=== PATIENT | male | born 1960 | race Caucasian/White ===

== ENCOUNTER 2020-05-26 21:45 | Emergency (ER) | payer OTHER ==
[2020-05-26 22:23] LABS: Absolute Lymphocytes (CBC) 3.1 K/uL (0.7-4.9); Basophils % 0.5 % (0-1.3); Hematocrit 37.8 % (39.6-49.0); MPV 8.1 fL (7.6-11.3); RBC Red Blood Cell Count 4.37 M/uL (4.33-5.43)
[2020-05-26 22:27] LABS: Protime INR 0.99
[2020-05-26 22:40] LABS: ALT/SGPT 17 U/L (12-78); AST/SGOT 11 U/L (15-37); Albumin 3.6 g/dL (3.4-5.0); Alkaline Phosphatase 131 U/L (45-117); Amylase 80 U/L (25-115); BUN Blood Urea Nitrogen 18 mg/dL (7-18); Bicarbonate 25 mmol/L (21-32); Bilirubin Direct < 0.1 mg/dL (0-0.2); Bilirubin Total 0.4 mg/dL (0.2-1.0); CKMB Creatine Kinase MB 1.5 ng/mL (0.3-3.6); Creatine Phosphokinase 111 U/L (39-308); Glucose Level 149 mg/dL (74-106); Lipase 93 U/L (73-393); NT PRO-BNP 19 pg/mL (<125); Potassium 3.3 mmol/L (3.5-5.1); Protein, Total 7.3 g/dL (6.4-8.2); Sodium Level 142 mmol/L (136-145); Troponin (Emerg Dept Use Only) < 0.02 ng/mL (0.0-0.045)
--- NOTE | 2020-05-27 00:55 | EDPHYS ---
Physician Documentation [facility] Name: Jose Alfredo Oconnor Age: 60 yrs Sex: Male : 1960 Arrival Date: 05/26/2020 Time: 21:50 Bed 6 Private MD: ED Physician Romeo Black HPI: 05/26 22:16 This 60 yrs old Male presents to ER via EMS with complaints of Breathing snw Difficulty. 22:16 The patient has shortness of breath at rest. Onset: The symptoms/episode began/occurred snw gradually. Duration: The symptoms are continuous, and are unchanged since they started. Associated signs and symptoms: Pertinent positives: weakness. Severity of symptoms: At their worst the symptoms were moderate. The patient has experienced a previous episode. The patient has not recently seen a physician, and does not have an established primary care provider. Historical: - Allergies: 21:57 No Known Allergies; bb - Home Meds: 21:57 vitamins [Active]; bb - PMHx: 21:57 Myocardial infarction; bb - PSHx: 21:57 amputation; bb - Immunization history:: Adult Immunizations up to date. - Social history:: Smoking status: Patient/guardian denies using tobacco, but has a distant history of tobacco abuse. ROS: 21:55 Eyes: Negative for injury, pain, redness, and discharge, ENT: Negative for injury, snw pain, and discharge, Neck: Negative for injury, pain, and swelling, Cardiovascular: Negative for chest pain, palpitations, and edema, Respiratory: Negative for shortness of breath, cough, wheezing, and pleuritic chest pain, Abdomen/GI: Negative for abdominal pain, nausea, vomiting, diarrhea, and constipation, Back: Negative for injury and pain, : Negative for injury, bleeding, discharge, and swelling, MS/Extremity: Negative for injury and deformity, Skin: Negative for injury, rash, and discoloration. 21:55 Constitutional: Positive for body aches, malaise. 21:55 Neuro: Positive for weakness, Pt states he thinks he had a small stroke 1 week ago, felt weak from right amputation and it moved up to right arm. Exam: 21:54 Constitutional: This is a well developed, well nourished patient who is awake, alert, snw and in no acute distress. Head/Face: Normocephalic, atraumatic. Eyes: Pupils equal round and reactive to light, extra-ocular motions intact. Lids and lashes normal. Conjunctiva and sclera are non-icteric and not injected. Cornea within normal limits. Periorbital areas with no swelling, redness, or edema. ENT: Nares patent. No nasal discharge, no septal abnormalities noted. Tympanic membranes are normal and external auditory canals are clear. Oropharynx with no redness, swelling, or masses, exudates, or evidence of obstruction, uvula midline. Mucous membranes moist. Neck: Trachea midline, no thyromegaly or masses palpated, and no cervical lymphadenopathy. Supple, full range of motion without nuchal rigidity, or vertebral point tenderness. No Meningismus. Chest/axilla: Normal chest wall appearance and motion. Nontender with no deformity. No lesions are appreciated. Cardiovascular: Regular rate and rhythm with a normal S1 and S2. No gallops, murmurs, or rubs. Normal PMI, no JVD. No pulse deficits. Abdomen/GI: Soft, non-tender, with normal bowel sounds. No distension or tympany. No guarding or rebound. No evidence of tenderness throughout. Back: No spinal tenderness. No costovertebral tenderness. Full range of motion. Skin: Warm, dry with normal turgor. Pale color with no rashes, no lesions, and no evidence of cellulitis. MS/ Extremity: Pulses equal, no cyanosis. Neurovascular intact. Full, normal range of motion. Neuro: Awake and alert, GCS 15, oriented to person, place, time, and situation. Cranial nerves II-XII grossly intact. Motor strength 5/5 in all extremities. Sensory grossly intact. Cerebellar exam normal. Normal gait. Psych: Awake, alert, with orientation to person, place and time. Behavior, mood, and affect are within normal limits. 21:54 Respiratory: mild respiratory distress is noted, Respirations: pursed lip breathing, shallow respirations, Breath sounds: bronchial sounds, wheezing: that is moderate, is heard diffusely. Vital Signs: 21:51 BP 132 / 70; Pulse 85; Resp 18 S; Temp 97.5(O); Pulse Ox 94% on R/A; Weight 95.25 kg bb (R); Height 6 ft. 1 in. (185.42 cm) (R); Pain 0/10; 22:30 BP 105 / 64; Pulse 63; Resp 18; Pulse Ox 93% on R/A; ea 23:12 BP 144 / 99; Pulse 70; Resp 18; Pulse Ox 98% on R/A; ea 05/27 00:23 BP 135 / 83; Pulse 66; Resp 18; Pulse Ox 93% on R/A; ea 01:03 BP 149 / 96; Pulse 63; Resp 18; Pulse Ox 98% on R/A; ea 05/26 21:51 Body Mass Index 27.71 (95.25 kg, 185.42 cm) bb NIH Stroke Scale Scores: 05/26 21:56 NIHSS Score: 0 snw [place] Coma Score: 21:56 Eye Response: spontaneous(4). Verbal Response: oriented(5). Motor Response: obeys snw commands(6). Total: 15. MDM: 21:57 Patient medically screened. snw 05/27 00:56 Data reviewed: vital signs, nurses notes, lab test result(s), EKG, radiologic studies. snw Data interpreted: Pulse oximetry: on room air is 93 %. Interpretation: acceptable. Counseling: I had a detailed discussion with the patient and/or guardian regarding: the historical points, exam findings, and any diagnostic results supporting the discharge/admit diagnosis, the presence of at least one elevated blood pressure reading (>120/80) during this emergency department visit, lab results, radiology results, the need for outpatient follow up, to return to the emergency department if symptoms worsen or persist or if there are any questions or concerns that arise at home. Special discussion: I have referred the patient to see his PCP for further evaluation of high blood pressure. Based on the history and exam findings, there is no indication for further emergent testing or inpatient evaluation. I discussed with the patient/guardian the need to see the neurologist for further evaluation of the symptoms. I discussed with the patient/guardian the need to see the primary care provider for further evaluation of the symptoms. 05/26 21:52 Order name: Basic Metabolic Panel snw 05/26 21:52 Order name: CBC with Diff snw 05/26 21:52 Order name: LFT's snw 05/26 21:52 Order name: Magnesium snw 05/26 21:52 Order name: NT PRO-BNP snw 05/26 21:52 Order name: PT-INR [facility] 05/26 21:52 Order name: Troponin (emerg Dept Use Only) [facility] 05/26 21:52 Order name: T\T\S [facility] 05/26 21:52 Order name: Amylase, Serum [facility] 05/26 21:52 Order name: Blood Culture Adult (2) [facility] 05/26 21:52 Order name: Ckmb [facility] 05/26 21:52 Order name: CPK [facility] 05/26 21:52 Order name: Lactate; Complete Time: 23:05 [facility] 05/26 21:52 Order name: Lipase; Complete Time: 22:43 [facility] 05/26 21:52 Order name: Procalcitonin; Complete Time: 23:17 [facility] 05/26 21:52 Order name: Ptt, Activated; Complete Time: 22:43 [facility] 05/26 21:52 Order name: COVID-19 [facility] 05/26 21:53 Order name: Basic Metabolic Panel; Complete Time: 22:43 [facility] 05/26 21:53 Order name: CBC with Automated Diff; Complete Time: 22:36 [facility] 05/26 21:53 Order name: Liver (Hepatic) Function; Complete Time: 22:43 [facility] 05/26 21:53 Order name: Magnesium; Complete Time: 22:43 [facility] 05/26 21:53 Order name: NT PRO-BNP; Complete Time: 22:43 [facility] 05/26 21:53 Order name: Protime (+INR); Complete Time: 22:43 [facility] 05/26 21:53 Order name: Troponin (Emerg Dept Use Only); Complete Time: 22:43 [facility] 05/26 21:53 Order name: Type and Screen; Complete Time: 23:17 [facility] 05/26 21:53 Order name: Amylase; Complete Time: 22:43 [facility] 05/26 21:53 Order name: Blood Culture [facility] 05/26 21:53 Order name: CKMB Creatine Kinase MB; Complete Time: 22:43 [facility] 05/26 21:53 Order name: Creatine Phosphokinase; Complete Time: 22:43 [facility] 05/26 21:52 Order name: XRAY Chest (1 view) [facility] 05/26 21:52 Order name: Cardiac monitoring; Complete Time: 22:13 [facility] 05/26 21:52 Order name: EKG - Nurse/Tech; Complete Time: 22:13 snw 05/26 21:52 Order name: IV Saline Lock; Complete Time: 22:13 snw 05/26 21:52 Order name: Labs collected and sent; Complete Time: 22:14 snw 05/26 21:52 Order name: O2 Per Protocol; Complete Time: 22:13 snw 05/26 21:52 Order name: O2 Sat Monitoring; Complete Time: 22:13 snw 05/26 21:52 Order name: Accucheck; Complete Time: 22:36 snw 05/26 21:52 Order name: IV Saline Lock - Large Bore; Complete Time: 22:13 snw 05/26 21:53 Order name: CT Chest For PE Angio snw 05/26 21:53 Order name: CT Head Brain wo Cont snw 05/26 22:34 Order name: Glucose, Ancillary Testing; Complete Time: 22:36 EDMS EC/06 22:00 Rate is 66 beats/min. Rhythm is regular. QRS Minier is Normal. OR interval is normal. QRS snw interval is normal. QT interval is normal. No Q waves. Clinical impression: NSR w/ Non-specific ST/T Changes. Administered Medications: No medications were administered Disposition: 05/27 05:21 Co-signature as Attending Physician, Romeo Black MD I agree with the assessment and 4 plan of care. Disposition: 05/27/20 00:54 Discharged to Home. Impression: Muscle weakness (generalized), Pineocytoma. - Condition is Stable. - Discharge Instructions: Chronic Obstructive Pulmonary Disease, Weakness. - Medication Reconciliation Form, Thank You Letter, Antibiotic Education, Prescription Opioid Use form. - Follow up: Private Physician; When: 2 - 3 days; Reason: Recheck today's complaints, Continuance of care, Re-evaluation by your physician. Follow up: Emergency Department; When: As needed; Reason: Worsening of condition. NIH Stroke Scale - NIH Stroke Score Date: 05/26/2020 Time: 21:56 Total Score = 0 1a. Level of Consciousness (LOC) - 0(Alert) 1b. Level of Consciousness (LOC) (Year \T\ Age) - 0(Both) 1c. LOC Commands (Open \T\ Closes Eyes/Filler Feeder) - 0(Both) 2. Best Gaze (Lateral Gaze Paresis) - 0(Normal) 3. Visual Field Loss - 0(No visual loss) 4. Facial Palsy - 0(Normal) 5a. Left Arm: Motor (10-second hold) - 0(No drift) 5b. Right Arm: Motor (10-second hold) - 0(No drift) 6a. Left Leg: Motor (5-second hold - always test supine) - 0(No drift) 6b. Right Leg: Motor (5-second hold - always test supine) - 0(No drift) 7. Limb Ataxia (finger/nose \T\ heel/yuen - test with eyes open) - 0(Absent) 8. Sensory Loss (pinprick arms/legs/face) - 0(Normal) 9. Best Language: Aphasia (description/naming/reading) - 0(No aphasia) 10. Dysarthria (speech clarity - read or repeat words) - 0(Normal) 11. Extinction and Inattention (visual/tactile/auditory/spatial/personal) - 0(No abnormality) Initials: snw Signatures: Dispatcher [employer] EDMS Madisyn Kumari, HELEN-C DIGITAL MARKETING EXECUTIVE-Csnw Paula Renteria, RN RN bb Romeo Black MD MD tw4 Diego Alcaraz RN RN mg2 Corrections: (The following items were deleted from the chart) 01:24 00:54 05/27/2020 00:54 Discharged to Home. Impression: Muscle weakness mg2 (generalized); Pineocytoma. Condition is Stable. Forms are Medication Reconciliation Form, Thank You Letter, Antibiotic Education, Prescription Opioid Use. Follow up: Private Physician; When: 2 - 3 days; Reason: Recheck today's complaints, Continuance of care, Re-evaluation by your physician. Follow up: Emergency Department; When: As needed; Reason: Worsening of condition. snw
--- NOTE | 2020-05-27 00:55 | ER ---
Nurse's Notes [facility] Name: Jose Alfredo Oconnor Age: 60 yrs Sex: Male : 1960 Arrival Date: 05/26/2020 Time: 21:50 Bed 6 Private MD: Diagnosis: Muscle weakness (generalized);Pineocytoma Presentation: 05/26 21:51 Chief complaint: EMS states: they were toned out for report of pt thinking he was bb having a heart attack because he had a ME in the past with similar symptoms pt took his own aspirin and nitro x 2 at home. Coronavirus screen: At this time, the client does not indicate any symptoms associated with coronavirus-19. Ebola Screen: No symptoms or risks identified at this time. Initial Sepsis Screen: Does the patient meet any 2 criteria? No. Patient's initial sepsis screen is negative. Does the patient have a suspected source of infection? No. Patient's initial sepsis screen is negative. Risk Assessment: Do you want to hurt yourself or someone else? Patient reports no desire to harm self or others. Onset of symptoms was May 26, 2020. 21:51 Method Of Arrival: EMS: [facility] 21:51 Acuity: DAY 2 bb Triage Assessment: 22:00 General: Appears in no apparent distress. Behavior is appropriate for age. Respiratory: ea Airway is patent Respiratory effort is even, unlabored, Respiratory pattern is regular, symmetrical, Onset: The symptoms/episode began/occurred today, the patient reports symptoms have resolved. Historical: - Allergies: 21:57 No Known Allergies; bb - Home Meds: 21:57 vitamins [Active]; bb - PMHx: 21:57 Myocardial infarction; bb - PSHx: 21:57 amputation; bb - Immunization history:: Adult Immunizations up to date. - Social history:: Smoking status: Patient/guardian denies using tobacco, but has a distant history of tobacco abuse. Screenin:15 Abuse screen: Denies threats or abuse. Denies injuries from another. Nutritional mg2 screening: No deficits noted. Tuberculosis screening: No symptoms or risk factors identified. Fall Risk IV access (20 points). Assessment: 22:15 General: Appears in no apparent distress. comfortable, Behavior is calm, cooperative. mg2 Pain: Complains of pain in chest. Neuro: Level of Consciousness is awake, alert, obeys commands, Oriented to person, place, time, situation. Cardiovascular: Reports chest pain. Respiratory: Reports shortness of breath. EENT: No signs and/or symptoms were reported regarding the EENT system. Derm: Skin is intact, is healthy with good turgor, Skin is pink, warm \T\ dry. normal. Musculoskeletal: Circulation, motion, and sensation intact. Capillary refill < 3 seconds. 23:00 Reassessment: Patient and/or family updated on plan of care and expected duration. Pain ea level reassessed. Patient is alert, oriented x 3, equal unlabored respirations, skin warm/dry/pink. 05/27 00:23 Reassessment: Patient and/or family updated on plan of care and expected duration. Pain ea level reassessed. Patient is alert, oriented x 3, equal unlabored respirations, skin warm/dry/pink. 01:23 Reassessment: patient waiting for CT scan CD. mg2 Vital Signs: 05/26 21:51 BP 132 / 70; Pulse 85; Resp 18 S; Temp 97.5(O); Pulse Ox 94% on R/A; Weight 95.25 kg bb (R); Height 6 ft. 1 in. (185.42 cm) (R); Pain 0/10; 22:30 BP 105 / 64; Pulse 63; Resp 18; Pulse Ox 93% on R/A; ea 23:12 BP 144 / 99; Pulse 70; Resp 18; Pulse Ox 98% on R/A; ea 05/27 00:23 BP 135 / 83; Pulse 66; Resp 18; Pulse Ox 93% on R/A; ea 01:03 BP 149 / 96; Pulse 63; Resp 18; Pulse Ox 98% on R/A; ea 05/26 21:51 Body Mass Index 27.71 (95.25 kg, 185.42 cm) bb [place] Coma Score: 05/26 21:56 Eye Response: spontaneous(4). Verbal Response: oriented(5). Motor Response: obeys snw commands(6). Total: 15. NIH Stroke Scale Scores: 21:56 NIHSS Score: 0 snw ED Course: 21:50 Patient arrived in ED. bb 21:51 Madisyn Kumari FNP-C is [facility]. snw 21:51 Romeo Black MD is Attending Physician. snw 21:56 Diego Alcaraz, RN is Primary Nurse. mg2 21:56 Triage completed. bb 21:57 Arm band placed on Patient placed in an exam room, on a stretcher, on cardiac rehab nurse, bb on pulse oximetry. EKG completed in triage. Results shown to MD. 22:15 XRAY Chest (1 view) In Process Unspecified. EDMS 22:15 Patient has correct armband on for positive identification. Bed in low position. Call ea light in reach. Side rails up X2. ornamental painter on. Pulse ox on. NIBP on. 22:16 No provider procedures requiring assistance completed. mg2 22:20 Maintain EMS IV. Dressing intact. Good blood return noted. Site clean \T\ dry. Gauge \T\ mg 2 site: 20 RFA. 23:05 CT Head Brain wo Cont In Process Unspecified. EDMS 23:11 CT Chest For PE Angio In Process Unspecified. EDMS 11 01:23 IV discontinued, intact, bleeding controlled, No redness/swelling at site. Pressure mg2 dressing applied. Administered Medications: No medications were administered Outcome: 00:54 Discharge ordered by MD. snw 01:23 Discharged to home ambulatory, with family. mg2 01:23 Condition: stable 01:23 Discharge instructions given to patient, family, Instructed on discharge instructions, follow up and referral plans. Demonstrated understanding of instructions, follow-up care. 01:24 Patient left the ED. mg2 NIH Stroke Scale - NIH Stroke Score Date: 05/26/2020 Time: 21:56 Total Score = 0 1a. Level of Consciousness (LOC) - 0(Alert) 1b. Level of Consciousness (LOC) (Year \T\ Age) - 0(Both) 1c. LOC Commands (Open \T\ Closes Eyes/Supervisor Lump Room) - 0(Both) 2. Best Gaze (Lateral Gaze Paresis) - 0(Normal) 3. Visual Field Loss - 0(No visual loss) 4. Facial Palsy - 0(Normal) 5a. Left Arm: Motor (10-second hold) - 0(No drift) 5b. Right Arm: Motor (10-second hold) - 0(No drift) 6a. Left Leg: Motor (5-second hold - always test supine) - 0(No drift) 6b. Right Leg: Motor (5-second hold - always test supine) - 0(No drift) 7. Limb Ataxia (finger/nose \T\ heel/yuen - test with eyes open) - 0(Absent) 8. Sensory Loss (pinprick arms/legs/face) - 0(Normal) 9. Best Language: Aphasia (description/naming/reading) - 0(No aphasia) 10. Dysarthria (speech clarity - read or repeat words) - 0(Normal) 11. Extinction and Inattention (visual/tactile/auditory/spatial/personal) - 0(No abnormality) Initials: snw Addendum: 05/29/2020 16:22 Addendum: COVID-19 Result: Negative result given to RN to notify pt. Notified iw pt of negative COVID 19 swab results. Pt advised that even with a negative test result they should remain in isolation until symptom free for 3 days without medication. Pt also advised to return to the ED for worsening symptoms. Signatures: Dispatcher [employer] EDMS Madisyn Kumari, HELEN-C VP PURCHASING-Csnw Paula Renteria RN RN bb Williams, Irene, RN RN iw Antunez, Elena, RN RN ea [place]ose, Michele, RN RN mg2 Corrections: (The following items were deleted from the chart) 05/27 00:48 00:47 Inserted mg2 mg2
[2020-05-27 01:37] VITALS: TEMP 97.5
[2020-05-27 01:46] VITALS: BP 149/96; O2SAT 98
--- NOTE | 2020-05-27 08:56 | RAD REPORT ---
EXAM DESCRIPTION: Janice Single View05/26/2020 10:19 pm CLINICAL HISTORY: Shortness of breath COMPARISON: 2013 FINDINGS: Areas of scarring within the lung apices. The lungs are moderately hyperaerated consistent with COPD The lungs appear clear of acute infiltrate. The heart is normal size IMPRESSION: No acute abnormalities displayed
--- NOTE | 2020-05-29 10:29 | RAD REPORT ---
EXAM DESCRIPTION: CT - Head Brain Wo Cont - 05/27/2020 6:31 am CLINICAL HISTORY: 60-year-old male with TIA. COMPARISON: None. TECHNIQUE: CT brain without contrast. This exam was performed according to our departmental dose opt imization program which includes use of automated exposure control, adjustment of the mA and/or kV ac cording to patient size and/or use of iterative reconstruction technique. FINDINGS: The ventricles, sulci, and cisterns are within normal limits. The gregory-white matter diff erentiation is preserved. Incidental note is made of a focused round hypoattenuating lesion at the le crystal of the pineal gland raising the possibility of pineal cyst versus pineocytoma measuring 15 mm in AP dimension. There is no mass effect, midline shift, intra- or extra-axial fluid collection/acute hemorrhage. The osseous structures are unremarkable. The paranasal sinuses and mastoid air cells are clear. IMPRESSION: 1. No acute intracranial abnormalities. 2. 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 Electronically signed by: Debi Nagel MD 05/26/2020 11:21 PM PIPE MAKER Due to temporary technical issues with the PACS/Fluency reporting system, reports are being signed by the in house radiologist without review as a courtesy to ensure prompt reporting. The interpreting r adiologist is fully responsible for the content of the report.
--- NOTE | 2020-05-29 10:31 | RAD REPORT ---
EXAM DESCRIPTION: CT - Chest For Pe Angio - 05/27/2020 6:30 am CLINICAL HISTORY: 60-year-old male with shortness of breath. COMPARISON: None. TECHNIQUE: CT angiography of the pulmonary arteries was performed following intravenous administrati on of contrast. Coronal and bilateral oblique maximum intensity projections (MIPS) were created. This exam was performed according to our departmental dose optimization program which includes use of aut omated exposure control, adjustment of the mA and/or kV according to patient size and/or use of itera tive reconstruction technique. FINDINGS: Chest: Motion limited evaluation through the lungs reveals centrilobular and paraseptal lucency with bilater al apical predominant large bulla and paraseptal cysts compatible with emphysema. No focal opacity, pleural effusion or pneumothorax. There is minimal dependent basilar atelectasis an d scarring. The tracheobronchial airways are patent. No significant mediastinal or axillary lymphaden opathy by CT measurement criteria. Limited evaluation of the upper abdomen shows no acute intra-abdominal abnormalities. Gallbladder int raluminal calcification compatible with cholelithiasis. The osseous structures are within normal limits. CT angiography: Diagnostic CT angiography of the pulmonary arteries without intraluminal filling defe ct noted to suggest pulmonary arterial embolus. IMPRESSION: 1. Diagnostic pulmonary angiography without findings to suggest pulmonary arterial embol us. 2. Emphysema without focal opacity, pleural effusion or pneumothorax. 3. No specific findings are noted to suggest etiology of the patient's shortness of breath. 4. Cholelithiasis. Electronically signed by: Debi Nagel MD 05/26/2020 11:32 PM DATABASE SOFTWARE TECHNICIAN Due to temporary technical issues with the PACS/Fluency reporting system, reports are being signed by the in house radiologist without review as a courtesy to ensure prompt reporting. The interpreting r adiologist is fully responsible for the content of the report.
== END 2020-05-27 01:24 | disposition home or self-care (01) ==
LOC: ER 21:45
DX: D44.5 Neoplasm of uncertain behavior of pineal gland (principal); Z20.828 Contact with and (suspected) exposure to other viral communicable diseases; I25.2 Old myocardial infarction
CPT/HCPCS: 87040; 85025; 80048; 36415; 82150; 86900; 83735; 86850; 82550; 85610; 86901; 82947; 80076; 83605; 85730; 84484; 82553; 83690; 84145; 83880; 70450; 71275; 71045; 99284; U0002; Q9967

== ENCOUNTER 2020-07-06 23:23 | Inpatient (IN) | payer OTHER, SELFPAY ==
[2020-07-07] MEDS ORDERED: ASPIRIN 81 MG CHEWABLE TABLET ONE (00:35)
[2020-07-07] MEDS ORDERED: MORPHINE 2 MG/ML SYR ONE (00:36)
[2020-07-07] MEDS ORDERED: ONDANSETRON 4 MG/2 ML VIAL ONE (00:36)
[2020-07-07] MEDS ORDERED: ENOXAPARIN 100 MG/ML SYR SQ ONE ×2 (00:36→08:47)
--- OUTSIDE RECORDS SUMMARY | 2020-07-07 00:48 | XMS REPORT | Continuity of Care Document ---
:1960 Author Organization [facility] t Address [address] [place] [address] Care Team Providers Name Role Phone Agustina Proctor Attending Clinician Problems This patient has no known problems. Allergies, Adverse Reactions, Alerts This patient has no known allergies or adverse reactions. Medications This patient has no known medications. Procedures This patient has no known procedures. Encounters Start End Encounter Admission Attending Care Care Encounter Source Date/Time Date/Time Type Type Clinicians Facility Department ID 2020-07-06 2020-07-06 Emergency [facility] Multani [id number] 00:14:00 01:50:00 Vilma Fonseca [id number] [place] [id number] [place] [id number] Results This patient has no known results.
--- OUTSIDE RECORDS SUMMARY | 2020-07-07 00:49 | XMS REPORT | Summary of Care ---
:1960 Author Organization [facility] Address [address] [place] [address] Care Team Providers Name Role Phone Pcp, Does Not Have A Primary Care Provider Reason for Referral Radiology Services (STAT) Status Reason Specialty Diagnoses / Referred By Referred To Procedures Contact Contact New Request Diagnostic Diagnoses Chest pain, unspecified type Neelima Warren Radiology Procedures XR CHEST 1 DAXA Gautam MD [address] [facility] [id number] [place] [address] Reason for Visit Reason Comments Chest Pain started at 9am Auth/Cert Status Reason Specialty Diagnoses / Referred By Referred To Procedures Contact Contact Emergency Medicine Ad[facility] Em ergency Dept [address] [place] [address] Fax: Encounter Details Date Type Department Care Team Description 07/06/2020 Emergency ADC-Emergency Vilma Multani Chest judy n, unspecified type (Primary Dx); Department F, CROSS 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 documented as of this encounter (statuses as of 07/06/2020) Active Problems No known active problemsdocumented as of this encounter (statuses as of 07/06/2020) Social History Tobacco Use Types Packs/Day Years Used Date Never Assessed Sex Assigned at Date Recorded Not on file COVID-19 Exposure Response Date Recorded In the last month, have you been in contact with No / Unsure 07/06/2020 12:14 AM ACCOUNTANCY PROFESSOR someone who was confirmed or suspected to have Coronavirus / COVID-19? documented as of this encounter Last Filed Vital Signs Vital Sign Reading Time Taken Comments Blood Pressure 152/80 07/06/2020 1:32 AM ACCOUNTANCY PROFESSOR Pulse 60 07/06/2020 1:32 AM ACCOUNTANCY PROFESSOR Temperature 35.9 C (96.7 F) 07/06/2020 12:15 AM ACCOUNTANCY PROFESSOR Respiratory Rate 20 07/06/2020 1:32 AM ACCOUNTANCY PROFESSOR Oxygen Saturation 96% 07/06/2020 1:32 AM ACCOUNTANCY PROFESSOR Inhaled Oxygen Concentration - - Weight 90.7 kg (200 lb) 07/06/2020 12:15 AM ACCOUNTANCY PROFESSOR Height 185.4 cm (6' 1") 07/06/2020 12:15 AM ACCOUNTANCY PROFESSOR Body Mass Index 26.39 07/06/2020 12:15 AM ACCOUNTANCY PROFESSOR documented in this encounter Discharge Instructions Vilma Lee FNP - 07/06/2020 You were seen today for Chief Complaint Patient presents with Chest Pain started at 9am Your ER diagnosis was ICD-10-CM ICD-9-CM 1. Chest pain, unspecified type R07.9 786.50 2. SOB (shortness of breath) R06.02 786.05 3. Chest pain in adult R07.9 786.50 NO LIFE-THREATENING FINDINGS ON TODAY'S EXAM. YOUR PRESCRIPTIONS : Medication List ASK your doctor about these medications aspirin 81 mg chewable tablet ER precautions and follow up : 1. Return to ER if your symptoms should worsen or fail to improve within 72 hours. 2. The care provided in the emergency room was for acute problems only. 3. You should follow up with your primary care provider within 72 hours. 4. Fill and take all your medications as prescribed. 5. Make sure you are staying adequately hydrated. Busque attencion immediatamente si usted tiene los sitomas sigue, vuelve peor o si hay sitomas nuevas o para cualquiera preoccupacion incluyendo dolor del pecho, falta aire, se siente debile, mas fievre, mas dolor, nausea, vomitando, sangrando que no es normal, confusion, baja or pierdas conciencia. FOLLOW-UP RECOMMENDATIONS: RECOMMEND FOLLOW-UP WITH A PRIMARY CARE PROVIDER OR SPECIALIST IN 2-5 DAYS, ESPECIALLY IF NO IMPROVEMENT IN SYMPTOMS. MAY FOLLOW-UP WITH A PROVIDER OF YOUR CHOICE, SUCH : 1. A PHYSICIAN OF YOUR CHOICE 2. [facility], . LOCATIONS IN [facility] 3. [facility], [address] [place] [address]; [phone] OR, IF YOU WISH TO FOLLOW-UP WITHIN THE [facility], MAY TRY THESE OPTIONS (CLINIC APPOINTMENTS AVAILABLE ON EBLI-VA-IVMI BASIS): 1. SCHEDULE AN APPOINTMENT ONLINE AT WWW.[facility] 2. OR CALL THE [facility] ACCESS CENTER AT OR 3. OR CALL YOUR [facility] PHYSICIAN'S OFFICE DIRECTLY IF YOU ARE ALREADY AN ESTABLISHED [facility] PATIENT. documented in this encounter ED Notes Vilma Multani FNP - 07/06/2020 12:10 AM CST EMERGENCY DEPARTMENT ENCOUNTER [facility] Patient Name: Jose Alfredo Oconnor Date of : 1960 60 year old Exam Room:TX2/TX2 Primary Care Physician: PATIENT DOES NOT HAVE A PCP Pre- Hospital Patient Escorted by: Family [5] Mode of Arrival: Personal means [1] EMS Treatment Prior to ED Arrival: n/a ACCOUNTING TECHNICIAN treatment: Aspirin Chief Complaint Chief Complaint Patient presents with Chest Pain started at 9am HPI Patient is a 60 year old male presents to ED for evaluation and treatment due to sudden onset of SOB. Patient stated while watching TV at 9 pm he felt a sudden farias of"heat" and multiple burst of pain in his right chest wall accompanied by SOB. Patient also reports diarrhea while this was going on. Denies fever, chills cough, smoking History provided by: Patient family helper used: No Chest Pain Pain location: Substernal area and R chest Pain quality: shooting Pain radiates to: Does not radiate Pain severity: Mild Onset quality: Sudden Timing: Constant Progression: Unable to specify Chronicity: New Context: at rest Worsened by: Nothing Ineffective treatments: None tried Associated symptoms: shortness of breath Associated symptoms: no abdominal pain, no fever, no nausea, no vomiting and no weakness Shortness of breath: Severity: Moderate Onset quality: Sudden Timing: Constant Progression: Worsening Risk factors: male sex Past Medical History / Immunizations History reviewed. No pertinent past medical history. Tetanus received in last 5 years: No Past Surgical History History reviewed. No pertinent surgical history. Allergies No Known Allergies Social History Substance & Sexual Activity No substance use or sexual activity history on file. Review of Systems Review of Systems Constitutional: Negative for activity change, appetite change, chills and fever. HENT: Negative. Eyes: Negative. Respiratory: Positive for shortness of breath. Cardiovascular: Positive for chest pain. Gastrointestinal: Positive for diarrhea. Negative for abdominal distention, abdominal pain, anal bleeding, blood in stool, constipation, nausea, rectal pain and vomiting. Genitourinary: Negative for bladder incontinence, dysuria, frequency, hematuria, flank pain, decreased urine volume and difficulty urinating. Neurological: Negative for weakness. Physical Exam BP (!) 148/86 | Pulse 66 | Temp 35.9 C (96.7 F) (Oral) | Resp 18 | Ht 1.854 m (6' 1") | Wt 90.7 kg (200 lb) | SpO2 93% | BMI 26.39 kg/m Physical Exam Vitals signs and nursing note reviewed. Constitutional: Appearance: He is well-developed. Eyes: Pupils: Pupils are equal, round, and reactive to light. Neck: Musculoskeletal: Normal range of motion. Cardiovascular: Rate and Rhythm: Normal rate. Heart sounds: Normal heart sounds. Pulmonary: Effort: Pulmonary effort is normal. No respiratory distress. Breath sounds: No wheezing. Abdominal: General: There is no distension. Palpations: There is no mass. Tenderness: There is no abdominal tenderness. There is no guarding or rebound. Musculoskeletal: Normal range of motion. Skin: General: Skin is warm and dry. Neurological: Mental Status: He is alert and oriented to person, place, and time. Labs Recent Results (from the past 24 hour(s)) COVID-19 (ID NOW RAPID TESTING) Collection Time: 07/06/20 12:27 AM Specimen: NASOPHARYNGEAL SWAB Result Value Ref Range SARS-CoV-2 Rapid ID NOW Not Detected Not Detected TROPONIN I Collection Time: 07/06/20 12:33 AM Result Value Ref Range TROPONIN I <0.012 <=0.034 ng/mL aPTT Collection Time: 07/06/20 12:33 AM Result Value Ref Range APTT Patient 32 23 - 38 Seconds PROTHROMBIN TIME / INR Collection Time: 07/06/20 12:33 AM Result Value Ref Range PROTIME PATIENT 12.9 12.0 - 14.7 Seconds INR 1.0 COMP. METABOLIC PANEL (14967) Collection Time: 07/06/20 12:33 AM Result Value Ref Range NA 138 135 - 145 mmol/L K 4.7 3.5 - 5.0 mmol/L CL 102 98 - 108 mmol/L CO2 TOTAL 27 23 - 31 mmol/L AGAP 9 2 - 16 BUN 26 (H) 7 - 23 mg/dL GLUCOSE 123 (H) 70 - 110 mg/dL CREATININE 1.07 0.60 - 1.25 mg/dL TOTAL BILI 0.7 0.1 - 1.1 mg/dL CALCIUM 9.5 8.6 - 10.6 mg/dL T PROTEIN 8.2 6.3 - 8.2 g/dL ALBUMIN 4.6 3.5 - 5.0 g/dL ALK PHOS 148 (H) 34 - 122 U/L ALTv 11 5 - 50 U/L AST(SGOT) 27 13 - 40 U/L eGFR Calculation (Non-) 70.5 mL/min/1.73m2 eGFR Calculation () 85.4 mL/min/1.73m2 LIPASE, SERUM Collection Time: 07/06/20 12:33 AM Result Value Ref Range LIPASE 82 0 - 220 U/L CBC WITH DIFF Collection Time: 07/06/20 12:33 AM Result Value Ref Range WBC 9.22 4.20 - 10.70 10*3/L RBC 4.76 4.26 - 5.52 10*6/L HGB 13.9 12.2 - 16.4 g/dL HCT 42.0 38.4 - 49.3 % MCV 88.2 81.7 - 95.6 fL MCH 29.2 26.1 - 32.7 pg MCHC 33.1 31.2 - 35.0 g/dL RDW-SD 38.9 38.5 - 51.6 fL RDW-CV 12.0 (L) 12.1 - 15.4 % PLT 369 (H) 150 - 328 10*3/L MPV 9.4 (L) 9.8 - 13.0 fL NRBC/100 WBC 0.0 0.0 - 10.0 /100 WBCs NRBC x10^3 <0.01 10*3/L GRAN MAT (NEUT) % 69.2 % IMM GRAN % 0.30 % LYMPH % 21.7 % MONO % 6.0 % EOS % 2.5 % BASO % 0.3 % GRAN MAT x10^3(ANC) 6.38 1.99 - 6.95 10*3/uL IMM GRAN x10^3 0.03 0.00 - 0.06 10*3/uL LYMPH x10^3 2.00 1.09 - 3.23 10*3/uL MONO x10^3 0.55 0.36 - 1.02 10*3/uL EOS x10^3 0.23 0.06 - 0.53 10*3/uL BASO x10^3 0.03 0.01 - 0.09 10*3/uL N-TERMINAL PRO-BNP Collection Time: 07/06/20 12:33 AM Result Value Ref Range NT-proBNP 49 <=125 pg/mL Imaging Hospital Encounter on 07/06/20 XR CHEST 1 VW Narrative Ordering physician: NEELIMA WARREN Indication: Chest pain Comparison: None Findings: Single AP view of the chest. The cardiopericardial silhouette is within normal limits. The lungs are clear bilaterally. The visualized bony thorax is intact. Impression Impression: No radiographic evidence for acute cardiopulmonary disease. RL: [id number] AFC: [id number] Orders and Treatments Orders Placed This Encounter Procedures XR CHEST 1 VW TROPONIN I aPTT PROTHROMBIN TIME / INR COMP. METABOLIC PANEL (97070) LIPASE, SERUM CBC WITH DIFF COVID-19 (ID NOW RAPID TESTING) N-TERMINAL PRO-BNP LAB ONLY COVID INTERPRETATION O2 Per Protocol Orders Placed This Encounter Medications aspirin 81 mg chewable tablet albuterol (VENTOLIN) inhaler 2 Puff dexamethasone (DECADRON PHOSPHATE) injection 10 mg Rhythm Strip: NSR EKG: reviewed by me Dr Warren Rate 65 MO 162ms QTc 420ms Comparison with prior EKG: none Procedures Procedures Notes ED Course as of Jul 06 0136 Yvette Jul 06, 2020 0130 Patient states he feels better and his breathing has improved. Heart score is 3. Patient will be discharged home.Advise return to ED for worsening of symptoms. Patient will follow up with PCP in 2to 3 days. [FI] 0101 No radiographic evidence for acute cardiopulmonary disease. XR CHEST 1 VW [FI] ED Course User Index [FI] Vilma Multani FNP Diagnosis ICD-10-CM ICD-9-CM 1. Chest pain, unspecified type R07.9 786.50 2. SOB (shortness of breath) R06.02 786.05 3. Chest pain in adult R07.9 786.50 Disposition & Follow Up ED Disposition ED Disposition Condition Comment Disch - Home Stable Patient's Medications START taking these medications No medications on file CONTINUE taking these medications which have NOT CHANGED ASPIRIN 81 MG CHEWABLE TABLET Take 81 mg by mouth daily. START taking Modified Medications as Prescribed No medications on file STOP taking these medications No medications on file MDM Coding UNTANCY PROFESSOR Associated attestation - Neelima Warren MD - 07/06/2020 1:41 AM CSTAddendum I was personally available for consultation in the Emergency Department during this encounter and patient evaluation by HELEN Multani. documented in this encounter Miscellaneous Notes ED Nurse Note - Mari Chawla RN - 07/06/2020 1:49 AM DEAN Mutlani discharged the patient home with instructions given. Patient left ER vitally stable and ambulatory in steady gait and states that he feels better. No valuables left in ED. documented in this encounter Plan of Treatment Name Type Priority Associated Diagnoses Date/Ti me EKG-12 LEAD ROUTINE ONCE HEART STATION STAT Chest pain, 12:18 unspecified type AM ACCOUNTANCY PROFESSOR LAB ONLY COVID LAB Routine Chest pain, 07/06/2020 12 :27 INTERPRETATION unspecified type AM ACCOUNTANCY PROFESSOR Name Type Priority Associated Diagnoses Order S chedule EKG-12 LEAD ROUTINE HEART STATION STAT Chest pain, ONCE fo r 1 ONCE unspecified type Occurrences starting 2019 until 0 LAB ONLY COVID LAB Routine Chest pain, ONCE for 1 INTERPRETATION unspecified type Occurrenc es starting 2019 until 0 Health Maintenance Due Date Last Done Comments HEPATITIS C (HCV) SCREEN 1960 Depression Screening 1972 DTaP,Tdap,and Td Vaccines (1 - 01/12/1979 Tdap) COLON CANCER SCREENING ANNUAL 01/12/2010 FIT/FOBT COLON CANCER SCREENING FIT DNA 01/12/2010 EVERY 3 YEARS COLON CANCER SCREENING 01/12/2010 SIGMOIDOSCOPY EVERY 5 YEARS COLONOSCOPY 01/12/2010 Colorectal Cancer Screening 01/12/2010 Zoster Recombinant Vaccine 01/12/2010 (SHINGRIX) (1 of 2) INFLUENZA VACCINE (#1) 2020 PNEUMOCOCCAL 0-64 YEARS COMBINED Aged Out No longer eligible based on SERIES patient's age to complete this topic documented as of this encounter Procedures Procedure Name Priority Date/Time Associated Diagnosis Comme nts N-TERMINAL PRO-BNP STAT 07/06/2020 12:33 Chest pain, Resul ts for this AM ACCOUNTANCY PROFESSOR unspecified type procedure a re in the results section. ACTIVATED PARTIAL STAT 07/06/2020 12:33 Chest pain, Result s for this THRMPLAS IBJAL AM ACCOUNTANCY PROFESSOR unspecified type procedure a re in the results section. PROTHROMBIN TIME / STAT 07/06/2020 12:33 Chest pain, Resul ts for this INR AM ACCOUNTANCY PROFESSOR unspecified type procedure a re in the results section. CBC WITH DIFF STAT 07/06/2020 12:33 Chest pain, Results fo r this AM ACCOUNTANCY PROFESSOR unspecified type procedure a re in the results section. COMP. METABOLIC STAT 07/06/2020 12:33 Chest pain, Results for this PANEL (37205) AM ACCOUNTANCY PROFESSOR unspecified type procedure are in the results section. TROPONIN I STAT 07/06/2020 12:33 Chest pain, Results for this AM ACCOUNTANCY PROFESSOR unspecified type procedure a re in the results section. LIPASE STAT 07/06/2020 12:33 Chest pain, Results for this AM ACCOUNTANCY PROFESSOR unspecified type procedure a re in the results section. XR CHEST 1 VW STAT 07/06/2020 12:31 Chest pain, Results fo r this AM ACCOUNTANCY PROFESSOR unspecified type procedure a re in the results section. COVID-19 (ID NOW STAT 07/06/2020 12:27 Chest pain, Results for this RAPID TESTING) AM ACCOUNTANCY PROFESSOR unspecified type procedure are in the results section. NOTICE OF PRIVACY Routine 07/06/2020 12:09 PRACTICES AM ACCOUNTANCY PROFESSOR CONSENT/REFUSAL FOR Routine 07/06/2020 12:08 DIAGNOSIS AND AM ACCOUNTANCY PROFESSOR TREATMENT documented in this encounter Results N-TERMINAL PRO-BNP (07/06/2020 12:33 AM ACCOUNTANCY PROFESSOR) Pathologist Sig nature NT-proBNP 49 <=125 pg/mL [facility] Specimen Blood - VENOUS Narrative Performed At [facility] has been reported to cause a negative [facility] bias, interpret results relative to patient's use of biotin. Performing Organization Address City/State/Zipcode Phone Number [facility] CLIA: [id number] [place], [place] [id number] LABORATORY [address] CBC WITH DIFF (07/06/2020 12:33 AM ACCOUNTANCY PROFESSOR) Pathologist Sig [facility] WBC 9.22 4.20 - 10.70 [facility] 10*3/L [facility] RBC 4.76 4.26 - 5.52 [facility] 10*6/L [facility] HGB 13.9 12.2 - 16.4 [facility] g/dL [facility] HCT 42.0 38.4 - 49.3 % [facility] MCV 88.2 81.7 - 95.6 fL [facility] MCH 29.2 26.1 - 32.7 pg [facility] MCHC 33.1 31.2 - 35.0 [facility] g/dL [facility] RDW-SD 38.9 38.5 - 51.6 fL [facility] RDW-CV 12.0 (L) 12.1 - 15.4 % [facility] PLT 369 (H) 150 - 328 [facility] 10*3/L [facility] MPV 9.4 (L) 9.8 - 13.0 fL [facility] NRBC/100 WBC 0.0 0.0 - 10.0 /100 [facility] W[address]s [facility] NRBC x10^3 <0.01 10*3/L [facility] GRAN MAT (NEUT) % 69.2 % [facility] IMM GRAN % 0.30 % [facility] LYMPH % 21.7 % [facility] MONO % 6.0 % [facility] EOS % 2.5 % [facility] BASO % 0.3 % [facility] GRAN MAT x10^3(ANC) 6.38 1.99 - 6.95 [facility] 10*3/uL HOSPITAL LABORATORY IMM GRAN x10^3 0.03 0.00 - 0.06 [facility] 10*3/uL HOSPITAL LAB[facility]ORY LYMPH x10^3 2.00 1.09 - 3.23 [facility] 10*3/uL [facility]ITAL LAB[facility] MONO x10^3 0.55 0.36 - 1.02 [facility] 10*3/uL HOSPITAL LAB[facility]ORY EOS x10^3 0.23 0.06 - 0.53 [facility] 10*3/uL HOSPITAL LAB[facility]ORY BASO x10^3 0.03 0.01 - 0.09 [facility] 10*3/uL HOSPITAL LAB[facility]ORY Specimen Blood - VENOUS Performing Organization Address City/[facility]/Zipcode Phone Number [facility] CLIA: [id number] [place] [address] LABORATORY [address] LIPASE, SERUM (07/06/2020 12:33 AM ACCOUNTANCY PROFESSOR) Pathologist Sig nature LIPASE 82 0 - 220 U/L [facility] Specimen Blood - VENOUS Performing Organization Address City/[facility]/Zipcode Phone Number [facility] CLIA: [id number] [place] [address] LABORATORY [address] [facility] COMP. METABOLIC PANEL ([id number]) (07/06/2020 12:33 AM ACCOUNTANCY PROFESSOR) Pathologist Sig nature NA 138 135 - 145 [facility] mmol/L [facility] K 4.7 3.5 - 5.0 [facility] mmol/L [facility] CL 102 98 - 108 mmol/L [facility] CO2 TOTAL 27 23 - 31 mmol/L [facility] AGAP 9 2 - 16 [facility] BUN 26 (H) 7 - 23 mg/dL [facility] GLUCOSE 123 (H) 70 - 110 mg/dL [facility] CREATININE 1.07 0.60 - 1.25 [facility] mg/dL [facility] TOTAL BILI 0.7 0.1 - 1.1 mg/dL [facility] CALCIUM 9.5 8.6 - 10.6 [facility] mg/dL [facility] T PROTEIN 8.2 6.3 - 8.2 g/dL [facility] ALBUMIN 4.6 3.5 - 5.0 g/dL [facility] ALK PHOS 148 (H) 34 - 122 U/L [facility] ALTv 11 5 - 50 U/L [facility] AST(SGOT) 27 13 - 40 U/L [facility] eGFR Calculation 70.5 mL/min/1.73m2 [facility] ([facility] LABORATORY [place]) eGFR Calculation 85.4 mL/min/1.73m2 [facility] ([facility]) [facility] Specimen Blood - VENOUS Narrative Performed At [facility] Glomerular Filtration Rate (GFR) [facility] and Staging of Kidney Disease* + + +- + | GFR (mL/min/1.73 m2) | With Kidney Damage | Without Kidney Damage + + +- + | >90 | Stage one | Normal + + +- + | 60-89 | Stage two | Decreased GFR + + +- + | 30-59 | Stage three | Stage three + + +- + | 15-29 | Stage four | Stage four + + +- + | <15 (or dialysis) | Stage five | Stage five + + +- + *Each stage assumes the associated GFR level has been in effect for at least three months. Stages 1 to 5, with or without kidney disease, indicate chronic kidney disease. Notes: Determination of stages one and two (with eGFR >59mL/min/1.73 m2) requires estimation of kidney damage for at least three months as defined by structural or functional abnormalities of the kidney, manifested by either: Pathological abnormalities or Markers of kidney damage (including abnormalities in the composition of the blood or urine or abnormalities in imaging tests). Performing Organization Address City/State/Zipcode Phone Number [facility] CLIA: [id number] [place] [id number] LABORATORY [address] PROTHROMBIN TIME / INR (07/06/2020 12:33 AM ACCOUNTANCY PROFESSOR) PROTIME PATIENT 12.9 12.0 - 14.7 [facility] HOSPITAL LABORATORY INR 1.0Comment: Normal [facility] INR <1.1; Warfarin [facility] Therapeutic range LABORATORY 2.0 to 3.0 or 2.5 to 3.5, depending upon the indications. Specimen Blood - VENOUS Performing Organization Address [facility] Phone Number [facility] CLIA: [id number] [place] [address] aPTT (07/06/2020 12:33 AM ACCOUNTANCY PROFESSOR) Pathologist Sig nature APTT Patient 32 23 - 38 Seconds [facility] Specimen Blood - VENOUS Narrative Performed At [facility] patient population mean normal value [facility] for aPTT is 30 seconds. Performing Organization Address [facility] Phone Number [facility] CLIA: [id number] [place] [address] TROPONIN I (07/06/2020 12:33 AM ACCOUNTANCY PROFESSOR) Pathologist Sig nature TROPONIN I <0.012 <=0.034 ng/mL [facility] Specimen Blood - VENOUS Narrative Performed At Equal or Less than 0.034 ng/ml---Normal [facility] Note: Cardiac troponin begins to rise 3-4 hours after the onset of ischemia. Repeat in 4-6 hours if the sample was drawn within 3-4 hours of the onset of the symptom and found normal. Between 0.035 and 0.120 ng/mL--- Borderline. Questionable myocardial injury or necros is Note: Serial measurement may be necessary to confirm or exclude the diagnosis of myocardial injury or necrosis; Clinical correlation (symptoms, EKGs, imaging studies, and others) required; Repeat in 4-6 hours if clinically indicated. Equal or Higher than 0.121 ng/mL---Abnormal. Myocardial Injury or Necrosis Likely Biotin has been reported to cause a negative bias, interpret results relative to patient's use of biotin. Performing Organization Address City/[facility] Cent[facility]ode Phone Number [facility] CLIA: [id number] [place] [address] XR CHEST 1 VW (07/06/2020 12:31 AM ACCOUNTANCY PROFESSOR) Specimen Impressions Performed At Impression: PACS/VR/DOSE No radiographic evidence for acute cardi opulmonary disease. RL: [id number] AFC: [id number] Narrative Performed At Ordering physician: NEELIMA WARREN PACS/VR/DOSE Indication: Chest pain Comparison: None Findings: Single AP view of the chest. The cardioperic ardial silhouette is within normal limits. The lungs are clear bilaterally. The visualized bony thorax is intact. Procedure Note [facility], Radiant Results Inft User - 2019 12:55 AM ACCOUNTANCY PROFESSOR Ordering physician: NEELIMA WARREN Indication: Chest pain Comparison: None Findings: Single AP view of the chest. T he cardiopericardial silhouette is within normal limits. The lungs are [place] r bilaterally. The visualized bony thorax is intact. IMPRESSION Impression: No radiographic evidence for acute cardi opulmonary disease. RL: [id number] AFC: [id number] Performing Organization Address City/State/Zipcode Phone Number PACS/VR/DOSE COVID-19 (ID NOW RAPID TESTING) (07/06/2020 12:27 AM ACCOUNTANCY PROFESSOR) SARS-CoV-2 Rapid ID Not Detected Not Detected [facility] Specimen Swab - NASOPHARYNGEAL SWAB Narrative Performed At ID NOW COVID-19 Assay is an isothermal nucleic [facility] acid amplification test intended for the qualitative detection of nucleic acid from SARS-CoV-2 viral RNA in nasopharyngeal (ENGINEERING MODEL [employer]KER) specimens. It is used under Emergency Use Authorization (EUA) by FDA. The limit of detection (LOD) of the assay is 125 Genome Equivalents/mL. A positive result is indicative of the presence of SARS-CoV-2 RNA. Clinical correlation with patient history and other diagnostic information is necessary to determine patient infection status. A negative (Not Detected) result does not preclude SARS-CoV-2 infection. In patients with clinical symptoms and other tests that are consistent with SARS-CoV-2 infection, negative results should be treated as presumptive negative and a new specimen should be tested with alternative PCR molecular test. Invalid: Please collect a new specimen for repeat patient testing if clinically indicated. Performing Organization Address City/State/Zipcode Phone Number [facility] CLIA: [id number] [place] [address] documented in this encounter Visit Diagnoses Diagnosis Chest pain, unspecified type - Primary SOB (shortness of breath) Shortness of breath documented in this encounter Administered Medications Medication Order MAR Action Action Date Dose Rate Site albuterol (VENTOLIN) inhaler 2 Given 07/06/2020 12:49 AM ACCOUNTANCY PROFESSOR 2 P uffs Puff 2 Puff, Inhalation, ONCE, 1 dose, Yvette 07/06/20 at 0130, MICHAEL, Is this order for a patient with suspected or confirmed COVID-19 infection? Yes dexamethasone (DECADRON PHOSPHATE) injection Given 12:51 AM ACCOUNTANCY PROFESSOR 10 mg 10 mg 10 mg, IV Push, ONCE, 1 dose, Yvette 07/06/20 at 0130, STAT documented in this encounter Additional Health Concerns Infection Onset Date Last Indicated Resolved Time COVID-19 Rule Out 07/06/2020 07/06/2020 07/06/2020 12: 48 AM ACCOUNTANCY PROFESSOR documented as of this encounter Insurance Payer Benefit Plan / Subscriber ID Effective Phone Address T ype Group Dates MEDICAID MEDICAID SSI PENDING 2020-Pre [address] [place] [address] documented as of this encounter
[2020-07-07 01:08] LABS: Absolute Lymphocytes (CBC) 2.9 K/uL (0.7-4.9); Basophils % 0.8 % (0-1.3); Lymphocytes % 23.1 % (15.3-44.8); MPV 8.1 fL (7.6-11.3); RBC Red Blood Cell Count 4.59 M/uL (4.33-5.43)
[2020-07-07 01:13] LABS: Protime INR 1.01
[2020-07-07 01:33] LABS: ALT/SGPT 15 U/L (12-78); AST/SGOT 9 U/L (15-37); Albumin 3.8 g/dL (3.4-5.0); Alkaline Phosphatase 152 U/L (45-117); BUN Blood Urea Nitrogen 25 mg/dL (7-18); Bicarbonate 24 mmol/L (21-32); Bilirubin Direct < 0.1 mg/dL (0-0.2); Bilirubin Total 0.5 mg/dL (0.2-1.0); Glucose Level 102 mg/dL (74-106); Magnesium 2.5 mg/dL (1.8-2.4); NT PRO-BNP 51 pg/mL (<125); Potassium 3.9 mmol/L (3.5-5.1); Protein, Total 8.2 g/dL (6.4-8.2); Sodium Level 139 mmol/L (136-145); Troponin (Emerg Dept Use Only) < 0.02 ng/mL (0.0-0.045)
[2020-07-07] MEDS ORDERED: FAMOTIDINE 20 MG/2 ML VIAL IV ONE (01:39)
[2020-07-07] MEDS ORDERED: NITROGLYCERIN 1 GM PKT TD ONE ×4 (02:25→08:47)
--- NOTE | 2020-07-07 03:12 | P.HP ---
Certification for Inpatient Patient admitted to: Observation With expected LOS: <2 Midnights Patient will require the following post-hospital care: None Practitioner: I am a practitioner with admitting privileges, knowledge of patient current condition, hospital course, and medical plan of care. Services: Services provided to patient in accordance with Admission requirements found in Title 42 Section 412.3 of the Code of Federal Regulations <Darya Mederosshua - Last Filed: 07/07/20 03:06> Patient History Date of Service: 07/07/20 Primary Care Provider: None Reason for admission: Chest Pain, COPD with exacerbation History of Present Illness: This is a 60-year-old male with a history of possible heart attack in the past, chronic obstructive pulmonary disease, paroxysmal atrial fibrillation that presented to the emergency room today after having sudden onset of chest pressure with shortness of breath and radiation down left arm that started about 3 hr prior to arrival. Patient was worked up in the emergency room for chest pain. Patient had a negative 1st troponin. Sodium 139, potassium 3.9, chloride 107, bicarb 24, BUN 25, creatinine 0.91, glucose 102. Patient had white cell count of 12.7, hemoglobin 13.6, hematocrit 40, platelet 368. Chest x-ray without acute findings an EKG without acute findings. Patient stated that he had taken x2 nitro from his friend with mild relief. Currently pain is 5/10 and pressure in nature. Medicine was consulted at that time for further evaluation. Home medications list reviewed: Yes - Past Medical/Surgical History Has patient received pneumonia vaccine in the past: No Diabetic: No -: left foot reconstruction s/p traumatic amputation -: right knee surgery x2 -: lap appy/hernia repair - Social History Smoking Status: Former smoker Smoking therapy provided: No Alcohol use: No CD- Drugs: No Caffeine use: Yes Place of Residence: Home <Jono Mederos - Last Filed: 07/07/20 03:06> Date of Service: 07/07/20 <Lucy Lieberman - Last Filed: 07/12/20 16:28> Allergies No Known Allergies Allergy (Unverified 10/16/13 16:27) Home Medications: Aspirin Chewable [Aspirin Chewable*] 81 mg PO DAILY #0 tab.chew 10/19/13 Albuterol Inhaler [Ventolin Inhaler*] 2 puff IH Q6H PRN #1 hfa.aer.ad 07/07/20 Atorvastatin Calcium [Lipitor] 40 mg PO BEDTIME #30 tab 07/07/20 Azithromycin Tab [Zithromax*] 250 mg PO ZPAK #1 rc 07/07/20 Methylprednisolone [Medrol dosepack] 4 mg PO DIRECTED #1 rc 07/07/20 Metoprolol Tartrate [Lopressor*] 25 mg PO BID 6AM 6PM #60 tab 07/07/20 Review of Systems General: Unremarkable Eyes: Unremarkable ENT: Unremarkable Respiratory: Shortness of Breath Cardiovascular: Chest Pain Gastrointestinal: Unremarkable Genitourinary: Unremarkable Musculoskeletal: Unremarkable Integumentary: Unremarkable Neurological: Unremarkable Lymphatics: Unremarkable <Jono Mederos - Last Filed: 07/07/20 03:06> Physical Examination - Vital Signs Temperature: 98 F Blood Pressure: 162/90 Pulse: 60 Respirations: 22 Pulse Ox (%): 100 (Room air) - Physical Exam General: Alert, In no apparent distress, Oriented x3, Cooperative HEENT: PERRLA, Mucous membr. moist/pink, EOMI Neck: Supple, 2+ carotid pulse no bruit, JVD not distended, No Thyromegaly Respiratory: Expiratory wheezes (Bilateral moderate expiratory wheezing noted on exam) Cardiovascular: No edema, Normal pulses, Regular rate/rhythm, Normal S1 S2, No gallops, No rubs, No murmurs Capillary refill: <2 Seconds Gastrointestinal: Normal bowel sounds, Soft and benign, Non-distended, No ascites, No tenderness, No masses, No rebound, No guarding Musculoskeletal: No clubbing, No swelling, No contractures, No erythema, No tenderness, No warmth Integumentary: No rashes, No breakdown, No significant lesion, No tenderness/ swelling, No erythema, No warmth, No cyanosis Neurological: Normal speech, Normal strength at 5/5 x4 extr, Normal tone, Sensation intact, Cranial nerves 3-12 intact, Normal affect Lymphatics: No axilla or inguinal lymphadenopathy - Studies Laboratory Data (last 24 hrs) 07/07/20 00:52: PT 11.9, INR 1.01 07/07/20 00:52: WBC 12.7 H, Hgb 13.6, Hct 40.0, Plt Count 368 07/07/20 00:52: Sodium 139, Potassium 3.9, BUN 25 H, Creatinine 0.91, Glucose 102, Magnesium 2.5 H D, Total Bilirubin 0.5, AST 9 L, ALT 15, Alkaline Phosphatase 152 H <Jono Mederos - Last Filed: 07/07/20 03:06> Assessment and Plan - Problems (Diagnosis) (1) Chronic obstructive pulmonary disease Status: Acute Qualifiers: COPD type: COPD with acute exacerbation Qualified Code(s): J44.1 - Chronic obstructive pulmonary disease with (acute) exacerbation (2) Hypertension Status: Chronic Qualifiers: Hypertension type: essential hypertension Qualified Code(s): I10 - Essential (primary) hypertension (3) Hyperlipidemia Status: Chronic Qualifiers: Hyperlipidemia type: unspecified Qualified Code(s): E78.5 - Hyperlipidemia, unspecified (4) Chest pain Status: Acute Qualifiers: Chest pain type: chest pain due to myocardial ischemia Ischemic chest pain type: unstable angina pectoris Qualified Code(s): I20.0 - Unstable angina - Plan 1. Patient admitted to telemetry unit for further monitoring of cardiac chest pain and COPD 2. Patient started on breathing treatments and steroids for COPD. Will monitor his respiratory status and pulse oximetry 3. Patient will be evaluated by cardiology for possible unstable angina. Patient started on Lovenox. Will add beta-randell to patient's regimen as well along with daily aspirin. Will check lipid panel in the morning for hy perlipidemia 4. Patient on q. 6 hr nitroglycerin for continued chest pain 5. EKGs as necessary for increase in chest pain or change in rhythm 6. Vitals will be recheck throughout the night 7. Labs will be redrawn in the morning to to assess electrolyte stability Discharge Plan: Home Plan to discharge in: 24 Hours - Advance Directives Does patient have a Living Will: No Does patient have a Durable POA for Healthcare: No - Code Status/Comfort Care Code Status Assessed: Yes Code Status: Full Code Critical Care: No Time Spent Managing Pts Care (In Minutes): 70 <Jono Mederos - Last Filed: 07/07/20 03:06> Date of Service: 07/07/20 Agree with findings as mentioned above. Events of the last 24 hours noted. At this time, patient is stable for discharge with serial troponins and EKG are negative. <Lucy Lieberman - Last Filed: 07/12/20 16:28>
[2020-07-07] MEDS ORDERED: ONDANSETRON 4 MG/2 ML VIAL IV PRN (03:18)
[2020-07-07] MEDS ORDERED: MORPHINE 4 MG/ML SYR IV PRN (03:18)
[2020-07-07] MEDS: IPRATROPIUM BROM 0.5MG/2.5ML NEB SCH ×3 (03:18→13:20)
[2020-07-07] MEDS: ALBUTEROL 2.5 MG/3 ML NEB SOL NEB SCH ×3 (03:18→13:20)
[2020-07-07] MEDS ORDERED: METHYLPREDNISOLONE 40 MG INJ IV SCH ×3 (03:18→09:00)
[2020-07-07] MEDS ORDERED: ALBUTEROL 2.5 MG/3 ML NEB SOL ONE ×3 (03:38→13:23)
[2020-07-07] MEDS ORDERED: IPRATROPIUM BROM 0.5MG/2.5ML ONE ×3 (03:43→13:23)
[2020-07-07] MEDS ORDERED: METHYLPREDNISOLONE 40 MG INJ ONE (05:32)
[2020-07-07] MEDS ORDERED: METOPROLOL TAR 25 MG TAB ONE (05:32)
[2020-07-07] MEDS ORDERED: NITROGLYCERIN 1 GM PKT TD SCH (06:00)
[2020-07-07] MEDS ORDERED: METOPROLOL TAR 25 MG TAB PO SCH (06:00)
[2020-07-07 06:08] VITALS: BMI 26.4
--- NOTE | 2020-07-07 08:10 | RAD REPORT ---
EXAM DESCRIPTION: RAD - Chest Single View - 07/07/2020 7:37 am CLINICAL HISTORY: COUGH, CHEST PAIN COMPARISON: May 26, 2020 TECHNIQUE: AP portable chest image was obtained 07/07/2020 7:37 am . FINDINGS: No new mass or consolidation. Patient has a baseline chronic interstitial opacification ac centuated by slightly shallow inspiration. No significant failure or volume overload findings. Heart and vasculature are normal. No measurable pleural effusion and no pneumothorax. No acute bony abnormality seen. No acute aortic findings suspected. IMPRESSION: Chronic interstitial lung pattern not significantly different from comparison.
[2020-07-07] MEDS ORDERED: ASPIRIN EC 81 MG TAB PO ONE (08:47)
[2020-07-07] MEDS ORDERED: ASPIRIN EC 81 MG TAB PO SCH (09:00)
[2020-07-07] MEDS ORDERED: ENOXAPARIN 100 MG/ML SYR SQ SCH ×2 (09:00→11:00)
[2020-07-07 12:37] VITALS: TEMP 98.5; O2SAT 95
[2020-07-07 12:42] VITALS: BP 110/61
--- NOTE | 2020-07-07 12:57 | P.DS ---
Discharge Date: 07/07/20 Primary Care Provider: None Disposition: ROUTINE DISCHARGE Discharge Condition: GOOD Reason for Admission: Chest Pain, COPD with exacerbation Consultations: Manager Materials Management Brief History of Present Illness: This is a 60-year-old male with a history of possible heart attack in the past, chronic obstructive pulmonary disease, paroxysmal atrial fibrillation that presented to the emergency room today after having sudden onset of chest pressure with shortness of breath and radiation down left arm that started about 3 hr prior to arrival. Patient was worked up in the emergency room for chest pain. Patient had a negative 1st troponin. Sodium 139, potassium 3.9, chloride 107, bicarb 24, BUN 25, creatinine 0.91, glucose 102. Patient had white cell count of 12.7, hemoglobin 13.6, hematocrit 40, platelet 368. Chest x-ray without acute findings an EKG without acute findings. Patient stated that he had taken x2 nitro from his friend with mild relief. Currently pain is 5/10 and pressure in nature. Medicine was consulted at that time for further evaluation. Hospital Course: Patient was seen by cardiology. I agree with discharge with outpatient followup for echocardiogram and stress test. Possibly GI related and will start PPI. At this time, patient is stable for discharge home. Vital Signs/Physical Exam: Temp Pulse Resp BP Pulse Ox 98.5 F 59 18 110/61 96 07/07/20 08:00 07/07/20 12:00 07/07/20 12:00 07/07/20 12:00 07/07/20 12:00 General: Alert, In no apparent distress, Oriented x3 Laboratory Data at Discharge: WBC 12.7 K/uL (4.3-10.9) H 07/07/20 00:52 Hgb 13.6 g/dL (13.6-17.9) 07/07/20 00:52 Hct 40.0 % (39.6-49.0) 07/07/20 00:52 Plt Count 368 K/uL (152-406) 07/07/20 00:52 PT 11.9 SECONDS (9.5-12.5) 07/07/20 00:52 INR 1.01 07/07/20 00:52 Sodium 139 mmol/L (136-145) 07/07/20 00:52 Potassium 3.9 mmol/L (3.5-5.1) 07/07/20 00:52 BUN 25 mg/dL (7-18) H 07/07/20 00:52 Creatinine 0.91 mg/dL (0.55-1.3) 07/07/20 00:52 Glucose 102 mg/dL (74-106) 07/07/20 00:52 Magnesium 2.5 mg/dL (1.8-2.4) H D 07/07/20 00:52 Total Bilirubin 0.5 mg/dL (0.2-1.0) 07/07/20 00:52 AST 9 U/L (15-37) L 07/07/20 00:52 ALT 15 U/L (12-78) 07/07/20 00:52 Alkaline Phosphatase 152 U/L (45-117) H 07/07/20 00:52 Troponin I < 0.02 ng/mL (0.0-0.045) 07/07/20 08:10 Triglycerides 107 mg/dL (<150) 07/07/20 04:47 Cholesterol 225 mg/dL (<200) H 07/07/20 04:47 HDL Cholesterol 37 mg/dL (40-60) L 07/07/20 04:47 Cholesterol/HDL Ratio 6.08 07/07/20 04:47 Home Medications: Aspirin Chewable [Aspirin Chewable*] 81 mg PO DAILY #0 tab.chew 10/19/13 Albuterol Inhaler [Ventolin Inhaler*] 2 puff IH Q6H PRN #1 hfa.aer.ad 07/07/20 Atorvastatin Calcium [Lipitor] 40 mg PO BEDTIME #30 tab 07/07/20 Azithromycin Tab [Zithromax*] 250 mg PO ZPAK #1 rc 07/07/20 Methylprednisolone [Medrol dosepack] 4 mg PO DIRECTED #1 rc 07/07/20 Metoprolol Tartrate [Lopressor*] 25 mg PO BID 6AM 6PM #60 tab 07/07/20 New Medications: Atorvastatin Calcium [Lipitor] 40 mg PO BEDTIME #30 tab Metoprolol Tartrate [Lopressor*] 25 mg PO BID 6AM 6PM #60 tab Methylprednisolone [Medrol dosepack] 4 mg PO DIRECTED #1 rc Albuterol Inhaler [Ventolin Inhaler*] 2 puff IH Q6H PRN #1 hfa.aer.ad PRN Reason: Shortness Of Breath Azithromycin Tab [Zithromax*] 250 mg PO ZPAK #1 rc Patient Discharge Instructions: OK TO DC IV AND DC HOME. FOLLOW-UP WITH PRIMARY CARE PROVIDER IN 1-2 WEEKS. FOLLOW-UP WITH CARDIOLOGY IN 1-2 WEEKS. RETURN TO THE ER IF symptoms worsen. CALL or TEXT DR. CORREA AT [phone] IF ANY QUESTIONS REGARDING HOSPITAL STAY. PLEASE CALL THE FLOOR AT [phone] IF ANY MEDICATION OR NURSING QUESTIONS. Diet: AHA Activity: Ad emanuel Followup: NONE,NONE [Primary Care Provider] - Time spent managing pt's care (in minutes): 25
--- NOTE | 2020-07-08 04:11 | CON ---
Date of Consultation: 07/07/[address] Lieberman's service on 07/07/2020. I saw the patient on 07/07/2020. Reason For Consultation: Atypical chest pain. History Of Present Illness: Mr. Oconnor is a 60-year-old male with history of possible CAD in the past . He has a history of COPD with exacerbation, which is really the main reason he is here. He has a history of paroxysmal atrial fibrillation. He apparently has had a heart catheterization approximate ly 3 years ago that was normal. He came in with chest pressure, shortness of breath, radiation to th e left arm that has been going on for 3 to 5 hours. He has negative troponin, negative EKG, negative chest x-ray, and negative blood work. The pain is worse with lying down and eating. Denied any PND , orthopnea, pedal edema, palpitation, or syncope. Allergies: NONE. Medications: At home include aspirin, Zocor, and Prinivil. Past Medical History: Include COPD, hypertension, dyslipidemia, paroxysmal atrial fibrillation. He is not on anticoagulation. He has had multiple surgery included knee surgery and hernia surgery as w ell as foot reconstruction. Review of Systems: Negative. Social History: Negative. Family History: Negative. Physical Examination: Vital Signs: Stable, afebrile. HEENT: Negative. Neck: Supple with no bruit. Chest: Clear to auscultation and percussion. Cardiac: Revealed a regular rhythm and rate. No murmurs, gallops, or rubs. Abdomen: Benign. Extremities: Revealed no clubbing, cyanosis, or edema. Diagnostic Data: Chest x-ray was negative. His troponin was negative. His white count was 12.7. H is cholesterol was 225. His triglycerides 107. His LDL was 167 with HDL of 37. EKG was normal. Impression And Plan: Atypical chest pain, most likely related to gastroesophageal reflux disease and shortness of breath related to chronic obstructive pulmonary disease exacerbation. All his workup h as been fairly unremarkable. He has a catheterization 3 years ago that was negative. I am comfortab le with Mr. Oconnor going home on his home medication plus proton pump inhibitor, maybe inhalers, and p ossibly antibiotics, because of his elevated white count. I will be happy to see him in the office a s an outpatient if he desires. NB/MODL Voice ID: [id number] Report ID: [id number]
--- NOTE | 2020-07-08 14:01 | EKG ---
Test Date: 2020-07-07 Test Time: 08:00:14 Pharmacy Order Entry Technician: AARTI MEASUREMENT RESULTS: Intervals: Rate: 46 NH: 180 QRSD: 86 QT: 456 QTc: 399 [place]: P: 42 NH: 180 QRS: 6 T: 6 INTERPRETIVE STATEMENTS: Marked sinus bradycardia Abnormal ECG Compared to ECG 05/26/2020 22:02:37 ST (T wave) deviation no longer present Electronically Signed On 07-08-20 13:58:38 OCCUPATIONAL HEALTH PHYSIOTHERAPIST by Bigg Pena
== END 2020-07-07 14:17 | disposition home or self-care (01) | DRG 191 ==
LOC: ER 23:23 → OBSVTOIN 07-07 03:13 → ERHOLD 07-07 03:13
PROVIDERS: ADMIT Hospitalist; ATTEND Hospitalist
DX: J44.1 Chronic obstructive pulmonary disease with (acute) exacerbation (principal); I20.0 Unstable angina; K21.9 Gastro-esophageal reflux disease without esophagitis; E78.5 Hyperlipidemia, unspecified; I10 Essential (primary) hypertension; Z79.82 Long term (current) use of aspirin; Z79.899 Other long term (current) drug therapy; Z89.432 Acquired absence of left foot; Z87.891 Personal history of nicotine dependence
CPT/HCPCS: 36415; 71045; 80048; 80061; 80076; 83735; 83880; 84484; 85025; 85610; 93005; 94640; J1650; J2270; J2405; J2920

== ENCOUNTER 2020-07-14 19:52 | Inpatient (IN) | payer SELFPAY ==
--- OUTSIDE RECORDS SUMMARY | 2020-07-14 19:54 | XMS REPORT | Continuity of Care Document ---
:1960 Author Organization [facility] t Address [address] [place] [address] Care Team Providers Name Role Phone Agustina [...] 2020-07-06 2020-07-06 Emergency MILI Multani [id number] 00:14:00 01:50:00 Vilma Fonseca [id number] [place] [id number] [place] [id number] [id number] Results This patient has no known results.
[2020-07-14 21:19] LABS: Absolute Lymphocytes (CBC) 2.5 K/uL (0.7-4.9); Basophils % 0.9 % (0-1.3); Hematocrit 40.5 % (39.6-49.0); Lymphocytes % 37.3 % (15.3-44.8); MPV 8.7 fL (7.6-11.3); RBC Red Blood Cell Count 4.69 M/uL (4.33-5.43)
[2020-07-14] MEDS ORDERED: METHYLPREDNISOLONE 125 MG INJ ONE (21:23)
[2020-07-14] MEDS ORDERED: ALBUTEROL INHALER 60 PUFF/8 GM IH ONE (21:24)
[2020-07-14 21:41] LABS: ALT/SGPT 18 U/L (12-78); AST/SGOT 9 U/L (15-37); Albumin 3.5 g/dL (3.4-5.0); Alkaline Phosphatase 133 U/L (45-117); BUN Blood Urea Nitrogen 21 mg/dL (7-18); Bicarbonate 29 mmol/L (21-32); Bilirubin Direct < 0.1 mg/dL (0-0.2); Bilirubin Total 0.4 mg/dL (0.2-1.0); Glucose Level 92 mg/dL (74-106); Magnesium 2.3 mg/dL (1.8-2.4); NT PRO-BNP 93 pg/mL (<125); Potassium 3.8 mmol/L (3.5-5.1); Protein, Total 7.4 g/dL (6.4-8.2); Sodium Level 142 mmol/L (136-145); Troponin (Emerg Dept Use Only) < 0.02 ng/mL (0.0-0.045)
[2020-07-14 21:45] LABS: Protime INR 0.95
--- NOTE | 2020-07-15 01:26 | EDPHYS ---
Physician Documentation [facility] Name: Jose Alfredo Oconnor Age: 60 yrs Sex: Male : 1960 Arrival Date: 07/14/2020 Time: 19:56 Bed 3 Private MD: ED Physician Declan Phelps HPI: 07/14 21:41 This 60 yrs old Male presents to ER via Ambulatory with complaints of Chest mh7 Pain, Shortness Of Breath. 21:41 The patient has shortness of breath at rest. Onset: The symptoms/episode began/occurred mh7 2 day(s) ago. Duration: The symptoms are intermittent, with no pattern. The patient's shortness of breath is aggravated by coughing, exertion, is alleviated by nebulizer treatment. Associated signs and symptoms: Pertinent positives: chest pain, non-productive cough, nausea, Pertinent negatives: productive cough, diaphoresis, dizziness, fever, hemoptysis, loss of consciousness, numbness in extremities, visual changes, vomiting. Severity of symptoms: At their worst the symptoms were moderate 2 day(s) ago, in the emergency department the symptoms are unchanged. 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 - Social history:: Smoking status: Patient/guardian denies using tobacco, the patient reports quitting approximately 6 years ago. ROS: 21:41 Constitutional: Negative for fever, chills, and weight loss, Eyes: Negative for injury, mh7 pain, redness, and discharge, ENT: Negative for injury, pain, and discharge, Neck: Negative for injury, pain, and swelling, Back: Negative for injury and pain, : Negative for injury, bleeding, discharge, and swelling, MS/Extremity: Negative for injury and deformity, Skin: Negative for injury, rash, and discoloration, Neuro: Negative for headache, weakness, numbness, tingling, and seizure, Psych: Negative for depression, anxiety, suicide ideation, homicidal ideation, and hallucinations, Allergy/Immunology: Negative for hives, rash, and allergies, Endocrine: Negative for neck swelling, polydipsia, polyuria, polyphagia, and marked weight changes, Hematologic/Lymphatic: Negative for swollen nodes, abnormal bleeding, and unusual bruising. Exam: 21:41 Constitutional: This is a well developed, well nourished patient who is awake, alert, mh7 and in no acute distress. Head/Face: Normocephalic, atraumatic. Eyes: Pupils equal round and reactive to light, extra-ocular motions intact. Lids and lashes normal. Conjunctiva and sclera are non-icteric and not injected. Cornea within normal limits. Periorbital areas with no swelling, redness, or edema. Neck: Trachea midline, no thyromegaly or masses palpated, and no cervical lymphadenopathy. Supple, full range of motion without nuchal rigidity, or vertebral point tenderness. No Meningismus. Chest/axilla: Normal chest wall appearance and motion. Nontender with no deformity. No lesions are appreciated. Cardiovascular: Regular rate and rhythm with a normal S1 and S2. No gallops, murmurs, or rubs. Normal PMI, no JVD. No pulse deficits. 21:41 Abdomen/GI: Soft, non-tender, with normal bowel sounds. No distension or tympany. No guarding or rebound. No evidence of tenderness throughout. Back: No spinal tenderness. No costovertebral tenderness. Full range of motion. Skin: Warm, dry with normal turgor. Normal color with no rashes, no lesions, and no evidence of cellulitis. MS/ Extremity: Pulses equal, no cyanosis. Neurovascular intact. Full, normal range of motion. Neuro: Awake and alert, GCS 15, oriented to person, place, time, and situation. Cranial nerves II-XII grossly intact. Motor strength 5/5 in all extremities. Sensory grossly intact. Cerebellar exam normal. Normal gait. Psych: Awake, alert, with orientation to person, place and time. Behavior, mood, and affect are within normal limits. 21:41 Respiratory: the patient does not display signs of respiratory distress, Respirations: prolonged exhalation, that is mild, Breath sounds: rhonchi, that are mild, are scattered, Respiratory rate: 20 Vital Signs: 20:15 BP 161 / 94; Pulse 63; Resp 20; Pulse Ox 99% ; Weight 90.72 kg; Height 6 ft. 1 in. lp1 (185.42 cm); Pain 5/10; 22:13 BP 154 / 81; Pulse 67; Resp 20; Pulse Ox 95% ; ea 07/15 00:20 BP 137 / 72; Pulse 61; Resp 19; Pulse Ox 95% on R/A; ea 01:52 BP 119 / 98; Pulse 58; Resp 18; Temp 98.4; Pulse Ox 94% on R/A; ea 07/14 20:15 Body Mass Index 26.39 (90.72 kg, 185.42 cm) lp1 MDM: 01:23 Differential diagnosis: Anemia Anxiety Reaction asthma, Bronchitis CHF exacerbation, 7 Chronic Obstructive Pulmonary Disease Myocardial Infarction pneumonia, Pneumothorax pulmonary edema, Pulmonary Embolism. Data reviewed: vital signs, nurses notes, old medical records, lab test result(s), cardiac enzymes, CBC, electrolytes, urinalysis, EKG, radiologic studies, CT scan, plain films. Data interpreted: Pulse oximetry: on room air is 96 %. Interpretation: normal. Counseling: I had a detailed discussion with the patient and/or guardian regarding: the historical points, exam findings, and any diagnostic results supporting the discharge/admit diagnosis, the presence of at least one elevated blood pressure reading (>120/80) during this emergency department visit, lab results, radiology results, the need for further work-up and treatment in the hospital. 01:[address] [facility] 07/14 21:02 Order name: Basic Metabolic Panel [facility] 07/14 21:02 Order name: CBC with Diff; Complete Time: 22:11 [facility] 07/14 21:02 Order name: LFT's; Complete Time: 22:11 [facility] 07/14 21:02 Order name: Magnesium; Complete Time: 22:11 [facility] 07/14 21:02 Order name: NT PRO-BNP; Complete Time: 22:11 [facility] 07/14 21:02 Order name: PT-INR; Complete Time: 22:11 [facility] 07/14 21:02 Order name: Troponin (emerg Dept Use Only); Complete Time: 22:11 [facility] 07/14 21:02 Order name: XRAY Chest (1 view) [facility] 07/14 21:02 Order name: Influenza Screen (a \T\ B); Complete Time: 22:11 [facility] 07/14 21:02 Order name: COVID-19 [facility] 07/14 21:03 Order name: Basic Metabolic Panel; Complete Time: 22:11 EDMS 07/14 22:19 Order name: CT Chest For PE Angio [facility] 07/15 02:19 Order name: SARS-COV-2 RT PCR [facility] 07/14 21:02 Order name: EKG; Complete Time: 21:03 [facility] 07/14 21:02 Order name: Cardiac monitoring; Complete Time: 21:05 [facility] 07/14 21:02 Order name: EKG - Nurse/Tech; Complete Time: 21:05 [facility] 07/14 21:02 Order name: IV Saline Lock; Complete Time: 21:05 [facility] 07/14 21:02 Order name: Labs collected and sent; Complete Time: 21:05 [facility] 07/14 21:02 Order name: O2 Per Protocol; Complete Time: 21: [facility] 07/14 21:02 Order name: O2 Sat Monitoring; Complete Time: 21:05 [facility] Administered Medications: 07/14 21:27 Drug: Albuterol HFA Inhaler 2 puffs Route: Inhalation; ea 22:36 Follow up: Response: No adverse reaction [facility] [place]:27 Drug: SOLU-Medrol 125 mg Route: IVP; Site: left antecubital; ea 22:36 Follow up: Response: No adverse reaction [facility] 07/15 01:39 Drug: Zofran (Ondansetron) 4 mg Route: IVP; Site: left antecubital; ea 01:49 Follow up: Response: No adverse reaction ea 01:40 Drug: morphine 4 mg Route: IVP; Site: left antecubital; ea 01:49 Follow up: Response: No adverse reaction; Pain is decreased; RASS: Alert and Calm (0) ea Disposition: 07/15/20 01:25 Hospitalization ordered by Claude Pantoja for Observation. Preliminary diagnosis is Chest pain, unspecified. - Bed requested for Telemetry/MedSurg (observation). - Status is Observation. mg2 - Condition is Stable. - Problem is new. - Symptoms have improved. Signatures: Dispatcher [employer] EDTX Leonila Carranza RN RN tl1 Keyonna Pruitt RN RN ea Gardose, Michele, RN RN mg2 Abel Saenz RN RN 1 Declan Phelps MD MD 7 Corrections: (The following items were deleted from the chart) 07/14 21:42 21:41 The patient has shortness of breath at rest, mh7 7 07/15 02:39 01:25 Hospitalization Ordered by Claude Pantoja MD for Observation. Preliminary tl1 diagnosis is Chest pain, unspecified. Bed requested for Telemetry/MedSurg (observation). Status is Observation. Condition is Stable. Problem is new. Symptoms have improved. 7 02:52 02:39 07/15/2020 01:25 Hospitalization Ordered by Claude Pantoja MD for Observation. mg2 Preliminary diagnosis is Chest pain, unspecified. Bed requested for Telemetry/MedSurg (observation). Status is Observation. Condition is Stable. Problem is new. Symptoms have improved. tl1
--- NOTE | 2020-07-15 01:26 | ER ---
Nurse's Notes [facility] Name: Jose Alfredo Oconnor Age: 60 yrs Sex: Male : 1960 Arrival Date: 07/14/2020 Time: 19:56 Bed 3 Private MD: Diagnosis: Chest pain, unspecified Presentation: 07/14 20:15 Chief complaint: Patient states: CP and SOB for 2 days. Fatigue and weakness, nausea ll1 for 2 days. is covid positive, denies cough. No fever. Coronavirus screen: Client denies travel out of the [place] in the last 14 days. difficulty breathing, fatigue, shortness of breath, Client presents with at least one sign or symptom that may indicate coronavirus-19. Standard/surgical mask placed on the client. Ebola Screen: Patient denies travel to an Ebola-affected area in the 21 days before illness onset. Initial Sepsis Screen: Does the patient meet any 2 criteria? No. Patient's initial sepsis screen is negative. Does the patient have a suspected source of infection? Yes: Productive cough/pneumonia. Risk Assessment: Do you want to hurt yourself or someone else? Patient reports no desire to harm self or others. Onset of symptoms was July 13, 2020. 20:15 Method Of Arrival: Ambulatory ll1 20:15 Acuity: DAY 3 ll1 Triage Assessment: 20:38 General: Appears in no apparent distress. Behavior is appropriate for age. Pain: Denies ea pain. Cardiovascular: Patient's skin is warm and dry. 20:39 Neuro: Level of Consciousness is awake, alert, obeys commands, Oriented to person, ea place, time, situation. Respiratory: Airway is patent Respiratory effort is even, unlabored, Respiratory pattern is regular, symmetrical. Derm: Skin is pink, warm \T\ dry. 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 - Social history:: Smoking status: Patient/guardian denies using tobacco, the patient reports quitting approximately 6 years ago. Screenin:38 Abuse screen: Denies threats or abuse. Nutritional screening: No deficits noted. ea Tuberculosis screening: No symptoms or risk factors identified. Fall Risk None identified. Assessment: 21:45 General: Appears in no apparent distress. comfortable, Behavior is calm, cooperative. mg2 Pain: Complains of pain in chest. Neuro: Level of Consciousness is awake, alert, obeys commands, Oriented to person, place, time, situation. 21:45 Cardiovascular: Capillary refill < 3 seconds. Respiratory: Airway is patent Respiratory mg2 effort is even, unlabored, Respiratory pattern is regular, symmetrical. Respiratory: Reports shortness of breath. GI: No signs and/or symptoms were reported involving the gastrointestinal system. : No signs and/or symptoms were reported regarding the genitourinary system. EENT: No signs and/or symptoms were reported regarding the EENT system. Derm: Skin is intact, is healthy with good turgor, Skin is pink, warm \T\ dry. normal. Musculoskeletal: Circulation, motion, and sensation intact. Capillary refill < 3 seconds. 21:45 Pain: Pain does not radiate. mg2 07/15 00:20 Reassessment: Patient and/or family updated on plan of care and expected duration. Pain ea level reassessed. Patient is alert, oriented x 3, equal unlabored respirations, skin warm/dry/pink. awaiting on results. 01:49 Reassessment: Patient and/or family updated on plan of care and expected duration. Pain ea level reassessed. Patient is alert, oriented x 3, equal unlabored respirations, skin warm/dry/pink. Awaiting on covid results. Vital Signs: 07/14 20:15 BP 161 / 94; Pulse 63; Resp 20; Pulse Ox 99% ; Weight 90.72 kg; Height 6 ft. 1 in. lp1 (185.42 cm); Pain 5/10; 22:13 BP 154 / 81; Pulse 67; Resp 20; Pulse Ox 95% ; ea 07/15 00:20 BP 137 / 72; Pulse 61; Resp 19; Pulse Ox 95% on R/A; ea 01:52 BP 119 / 98; Pulse 58; Resp 18; Temp 98.4; Pulse Ox 94% on R/A; ea 07/14 20:15 Body Mass Index 26.39 (90.72 kg, 185.42 cm) lp1 ED Course: 07/14 19:56 Patient arrived in ED. am2 20:17 Triage completed. ll1 20:18 Arm band placed on. ll1 20:38 Keyonna Pruitt, RN is Primary Nurse. ea 20:38 Patient has correct armband on for positive identification. Bed in low position. Call ea light in reach. Side rails up X 1. Pulse ox on. NIBP on. 20:38 Patient maintains SpO2 saturation greater than 95% on room air. ea 20:45 Declan Phelps MD is Attending Physician. mh7 21:28 XRAY Chest (1 view) In Process Unspecified. EDMS 21:45 Inserted saline lock: by BRADY Robin. mg2 22:15 No provider procedures requiring assistance completed. mg2 23:07 COVID-19 Sent. ds4 23:33 CT Chest For PE Angio In Process Unspecified. EDMS 07/15 01:24 Claude Pantoja MD is Hospitalizing Provider. 7 01:54 Patient admitted, IV remains in place. ea Administered Medications: 07/14 21:27 Drug: Albuterol HFA Inhaler 2 puffs Route: Inhalation; ea 22:36 Follow up: Response: No adverse reaction mg2 21:27 Drug: SOLU-Medrol 125 mg Route: IVP; Site: left antecubital; ea 22:36 Follow up: Response: No adverse reaction mg2 07/15 01:39 Drug: Zofran (Ondansetron) 4 mg Route: IVP; Site: left antecubital; ea 01:49 Follow up: Response: No adverse reaction ea 01:40 Drug: morphine 4 mg Route: IVP; Site: left antecubital; ea 01:49 Follow up: Response: No adverse reaction; Pain is decreased; RASS: Alert and Calm (0) ea Outcome: 01:25 Decision to Hospitalize by Provider. mh7 01:53 Instructed on the need for admit, Demonstrated understanding of instructions. ea 02:47 Admitted to Tele accompanied by tech, via stretcher, room 410, with chart, Report mg2 called to NICK Blunt 02:47 Condition: stable 02:52 Patient left the ED. mg2 Signatures: Dispatcher [employer] EDMS Shayla Serna RN RN lp1 Lobito Sal ds4 Cait Shipley am2 Keyonna Pruitt, Diego Ascencio RN, ea, RN RN mg2 Abel Saenz RN RN ll1 Declan Phelps MD MD mh7 Corrections: (The following items were deleted from the chart) 07/14 20:32 20:15 BP 161 / 94; Pulse 63bpm; Resp 18bpm; Pulse Ox 99%; 90.72 kg; Height 6 ft. 1 in.; lp1 BMI: 26.3; Pain 5/10; ll1
--- NOTE | 2020-07-15 01:27 | P.HP ---
Certification for Inpatient Patient admitted to: Observation With expected LOS: <2 Midnights Patient will require the following post-hospital care: None Practitioner: I am a practitioner with admitting privileges, knowledge of patient current condition, hospital course, and medical plan of care. Services: Services provided to patient in accordance with Admission requirements found in Title 42 Section 412.3 of the Code of Federal Regulations <JaydondominickLupillo - Last Filed: 07/15/20 01:23> Patient History Date of Service: 07/15/20 Primary Care Provider: None Reason for admission: Chest pain History of Present Illness: 60-year-old male with history of COPD presents to the emergency department for chest pain and shortness of breath. Patient's is COVID +. Patient reports malaise, fatigue, shortness of breath over the course of the last 3 days, had recent admission for similar symptoms about a week ago. At that time with previous admission is document that patient is experiencing pressure-like chest pain with this pain was worse with who or supine positioning. Patient now reports that since earlier today he has had pain in the center of his chest radiating to left arm described as somebody sitting on his chest, not exacerbated by eating, positioning or inspiration. During his previous admission patient had his troponins trended x3 which were negative and was recommended for outpatient followup with Cardiology. Patient has not followed up with Cardiology. Has had a heart catheterization approximately 3 years ago without stent placement. Initial troponin negative, chest x-ray unremarkable, EKG without acute changes. Patient was treated for his COPD with albuterol inhaler in the emergency department which did improve his symptoms. From respiratory standpoint. Patient remains on outpatient basis but he is chest pain the provider wishes to admit patient for further evaluation and management. - Past Medical/Surgical History Diabetic: No -: COPD -: left foot reconstruction s/p traumatic amputation -: right knee surgery x2 -: lap appy/hernia repair Psychosocial/ Personal History: Retired, lives with his - Family History Brother -: Diabetes - Social History Smoking Status: Never smoker Alcohol use: No CD- Drugs: No Caffeine use: Yes Place of Residence: Home <Lupillo Key - Last Filed: 07/15/20 01:23> Date of Service: 07/15/20 <Claude Pantoja - Last Filed: 12/26/20 15:28> Allergies No Known Allergies Allergy (Unverified 10/16/13 16:27) Home Medications: RX: Aspirin Chewable [Aspirin Chewable*] 81 mg PO DAILY #0 tab.chew 10/19/13 RX: Metoprolol Tartrate [Lopressor*] 25 mg PO BID 6AM 6PM #60 tab 07/07/20 Review of Systems 10-point ROS is otherwise unremarkable Respiratory: Cough, Shortness of Breath <Lupillo Key - Last Filed: 07/15/20 01:23> Physical Examination - Physical Exam General: Alert, In no apparent distress HEENT: Atraumatic, PERRLA, Mucous membr. moist/pink Neck: Supple, 2+ carotid pulse no bruit, No LAD Respiratory: Normal air movement, Expiratory wheezes (Mild expiratory wheezes) Cardiovascular: Regular rate/rhythm, Normal S1 S2 Gastrointestinal: Normal bowel sounds, No tenderness Musculoskeletal: No tenderness Integumentary: No rashes Neurological: Normal speech, Normal strength at 5/5 x4 extr, Normal tone - Studies Laboratory Data (last 24 hrs) 07/14/20 20:52: PT 11.2, INR 0.95 07/14/20 20:52: WBC 6.7 D, Hgb 13.9, Hct 40.5, Plt Count 246 D 07/14/20 20:52: Sodium 142, Potassium 3.8, BUN 21 H, Creatinine 1.15, Glucose 92, Magnesium 2.3, Total Bilirubin 0.4, AST 9 L, ALT 18, Alkaline Phosphatase 133 H Microbiology Data (last 24 hrs): 07/14/20 21:19 Nasopharnyx Influenza Type A Antigen Screen - Final 07/14/20 21:19 Nasopharnyx Influenza Type B Antigen Screen - Final <Lupillo Key - Last Filed: 07/15/20 01:23> - Studies Laboratory Data (last 24 hrs) 07/15/20 09:25: WBC 6.5, Hgb 14.0, Hct 40.6, Plt Count 292 07/15/20 08:47: Sodium 138, Potassium 4.9, BUN 20 H, Creatinine 1.10, Glucose 145 H, Magnesium 2.2 07/15/20 07:12: Troponin I < 0.02 07/15/20 03:39: Troponin I < 0.02 07/14/20 20:52: PT 11.2, INR 0.95 07/14/20 20:52: WBC 6.7 D, Hgb 13.9, Hct 40.5, Plt Count 246 D 07/14/20 20:52: Sodium 142, Potassium 3.8, BUN 21 H, Creatinine 1.15, Glucose 92, Magnesium 2.3, Total Bilirubin 0.4, AST 9 L, ALT 18, Alkaline Phosphatase 133 H Microbiology Data (last 24 hrs): 07/14/20 21:19 Nasopharnyx Influenza Type A Antigen Screen - Final 07/14/20 21:19 Nasopharnyx Influenza Type B Antigen Screen - Final <Claude Pantoja - Last Filed: 07/15/20 15:28> Assessment and Plan - Plan Assessment Chest pain rule out ACS COPD exacerbation with exposure to COVID Hyperlipidemia Plan Chest pain rule out ACS: Trend troponins, monitor on telemetry. Continue aspirin, beta-randell, statin. Lovenox for DVT prophylaxis, cardiology consult in place. COPD exacerbation with exposure to COVID: Continue with as needed albuterol inhaler, oral steroids. Hyperlipidemia: Continue atorvastatin 40. Discharge Plan: Home Plan to discharge in: 24 Hours - Advance Directives Does patient have a Living Will: Yes Does patient have a Durable POA for Healthcare: Yes - Code Status/Comfort Care Code Status Assessed: Yes (Full code) Critical Care: No Time Spent Managing Pts Care (In Minutes): 55 <Lupillo Key - Last Filed: 07/15/20 01:23> - Plan Plan of care reviewed above, and I agree with the management plan as noted by Lupillo Key trend troponin, cardiology consulted COVID-19 isolation protocol <Claude Pantoja - Last Filed: 07/15/20 15:28>
[2020-07-15] MEDS ORDERED: MORPHINE 4 MG/ML SYR ONE (01:48)
[2020-07-15] MEDS ORDERED: ONDANSETRON 4 MG/2 ML VIAL ONE (01:49)
[2020-07-15] MEDS ORDERED: SODIUM CHLORIDE 0.9% 10ML INJ IV PRN (03:05)
[2020-07-15] MEDS ORDERED: ALBUTEROL INHALER 60 PUFF/8 GM IH PRN (03:05)
[2020-07-15] MEDS ORDERED: ACETAMINOPHEN 500 MG TAB PO PRN (03:05)
[2020-07-15] MEDS ORDERED: ONDANSETRON 4 MG/2 ML VIAL IV PRN (03:05)
[2020-07-15 04:56] VITALS: BMI 26.4
[2020-07-15] MEDS ORDERED: METOPROLOL TAR 25 MG TAB PO SCH (06:00)
[2020-07-15 07:54] LABS: C-Reactive Protein 6.66 mg/L (<3.00); Ferritin 201.1 ng/mL (26-388)
[2020-07-15] MEDS: VITAMIN D 1000 UNIT TAB PO SCH (07:58)
[2020-07-15] MEDS: ASPIRIN EC 81 MG TAB PO SCH (07:58)
[2020-07-15] MEDS: MORPHINE 2 MG/ML SYR IV PRN ×3 (07:59→20:05)
[2020-07-15] MEDS: predniSONE 20 MG TAB PO SCH ×2 (07:59→18:11)
[2020-07-15] MEDS: ASCORBIC ACID 500 MG TABLET PO SCH ×3 (07:59→20:04)
[2020-07-15] MEDS: ENOXAPARIN 40 MG/0.4 ML SQ SCH (07:59)
[2020-07-15] MEDS: ZINC SULFATE 220 MG CAP PO SCH (07:59)
[2020-07-15] MEDS ORDERED: PANTOPRAZOLE 40 MG INJ IVP SCH (09:00)
[2020-07-15 09:11] LABS: Magnesium 2.2 mg/dL (1.8-2.4); Potassium 4.9 mmol/L (3.5-5.1)
[2020-07-15 09:42] LABS: Absolute Lymphocytes (CBC) 1.1 K/uL (0.7-4.9); Basophils % 0.6 % (0-1.3); Hematocrit 40.6 % (39.6-49.0); Lymphocytes % 17.1 % (15.3-44.8); MPV 8.3 fL (7.6-11.3); RBC Red Blood Cell Count 4.69 M/uL (4.33-5.43)
--- NOTE | 2020-07-15 12:28 | RAD REPORT ---
EXAM DESCRIPTION: RAD - Chest Single View - 07/14/2020 9:33 pm CLINICAL HISTORY: SOB Chest pain. COMPARISON: Chest Single View dated 07/07/2020; Chest Single View dated 05/26/2020; CHEST SINGLE VIEW dated 10/17/2013; CHEST SINGLE VIEW dated 10/16/2013 FINDINGS: Portable technique limits examination quality. Emphysematous changes are present throughout the lungs with linear scarring in the right apex. No foc al infiltrate detected. The heart is normal in size. No displaced fractures. IMPRESSION: Prominent COPD.
--- NOTE | 2020-07-15 13:56 | RAD REPORT ---
EXAM DESCRIPTION: CT Chest For PE Angio CLINICAL HISTORY: 60 years Male SOB TECHNIQUE: Contiguous axial images obtained through the chest were obtained from the thoracic inlet to the level of the upper abdomen during the rapid administration of intravenous contrast. Coronal an d sagittal reformatted and multiplanar MIP images provided. This CT exam was performed according to our departmental dose-optimization program, which includes on e or more of the following dose reduction techniques: automated exposure control, adjustment of the m A and/or kV according to patient size, and/or use of iterative reconstruction technique. COMPARISON: 05/26/2020 FINDINGS: Although no large central pulmonary embolus is identified, subsegmental pulmonary emboli a re not excluded on this examination, which is limited by suboptimal contrast opacification. Opacifica tion of the pulmonary arteries in the main pulmonary artery averages less than 200 HU. The thoracic aorta is normal without aneurysm or dissection. The heart is normal in size without john cardial effusion. There is moderate paraseptal and centrilobular emphysema in the upper lungs. There is dependent atele ctasis at the lung bases. No focal airspace infiltrate, pleural effusion, or pneumothorax. The centra l airways are patent. No lymphadenopathy in the chest. Gallstones, incompletely imaged. No acute osseous lesion. IMPRESSION: No large central pulmonary embolus. Cannot exclude small peripheral emboli due to subopt imal contrast opacification. Moderate emphysema. Gallstones. 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 The interpreting radiologist is fully responsible for the content of the report.
--- NOTE | 2020-07-15 15:30 | P.PN ---
Subjective Date of Service: 07/15/20 Primary Care Provider: None Chief Complaint: Chest pain Subjective: No new changes (continues with chest pressure) Review of Systems 10-point ROS is otherwise unremarkable Physical Examination - Vital Signs Temperature: 96.8 F Blood Pressure: 128/58 Pulse: 55 Respirations: 18 Pulse Ox (%): 95 - Physical Exam General: Alert, In no apparent distress HEENT: Sclerae nonicteric Respiratory: Other (non-labored on RA) Cardiovascular: No edema, Regular rate/rhythm, Other (chest wall TTP) Gastrointestinal: Soft and benign, No tenderness Musculoskeletal: No tenderness Integumentary: No significant lesion Neurological: Normal speech, Normal affect - Studies Laboratory Data (last 24 hrs) 07/15/20 09:25: WBC 6.5, Hgb 14.0, Hct 40.6, Plt Count 292 07/15/20 08:47: Sodium 138, Potassium 4.9, BUN 20 H, Creatinine 1.10, Glucose 145 H, Magnesium 2.2 07/15/20 07:12: Troponin I < 0.02 07/15/20 03:39: Troponin I < 0.02 07/14/20 20:52: PT 11.2, INR 0.95 07/14/20 20:52: WBC 6.7 D, Hgb 13.9, Hct 40.5, Plt Count 246 D 07/14/20 20:52: Sodium 142, Potassium 3.8, BUN 21 H, Creatinine 1.15, Glucose 92, Magnesium 2.3, Total Bilirubin 0.4, AST 9 L, ALT 18, Alkaline Phosphatase 133 H Microbiology Data (last 24 hrs): 07/14/20 21:19 Nasopharnyx Influenza Type A Antigen Screen - Final 07/14/20 21:19 Nasopharnyx Influenza Type B Antigen Screen - Final Assessment & Plan Physician Review Additional Text: Chest pain rule out ACS COVID-19+ Acute on Chronic COPD exacerbation Hyperlipidemia Plan Chest pain rule out ACS: Troponins negative, pt continues with pressure of L chest Cardiology consulted, reviewed prior cath in 2014 - 30% narrowing of the LM, 40- 50% LAD. pt may have worsening of these findings from ~6yrs ago Recommended to obtain nuclear stress test while inpatient continue ASA, BB, statin, lovenox for DVT prophylaxis COVID-19+ COPD exacerbation with exposure to COVID: Continue with as needed albuterol inhaler, oral steroids. trend CRP and ferritin, seems to be early in patient's COVID exposure/timeline continue to monitor closely Hyperlipidemia: Continue atorvastatin 40. Dispo: nuclear stress test on Friday, anticipate dc home pending those results Time Spent Managing Pts Care (In Minutes): 35
--- NOTE | 2020-07-15 18:52 | CON ---
Date of Consultation: 07/15/2020 Reason For Consultation: Chest pain. History Of Present Illness: 60-year-old male, history of COPD, presents to the emergency room with c hest pain, shortness of breath. tested positive for COVID, so did the patient. He feels genera lly weak with cough and shortness of breath as well as chest pain, retrosternal, not related to exert ion, but he feels like it is a pressure-like, no radiation. The patient reported having cardiac cath in the past and that was clean as well as report within the past 5 years. Past Medical History: As outlined above in HPI. Medications: Refer to reconciliation sheet for detailed list. Allergies: NO KNOWN DRUG ALLERGIES. Social History: Does not smoke or drink. Does not use any drugs. Review of Systems: All systems reviewed and they were negative except for mentioned in the HPI. Physical Examination: Vital Signs: Reviewed and they were stable. Head and Neck: Pupils are equal, react to light. Intact eye movements. No JVD. No cyanosis. Neck: Supple. Thyroid is not enlarged. Lungs: Decreased breathing sounds. No accessory muscle use or muscle retraction. Heart: Regular rate and rhythm. No extra sounds. Abdomen: Soft, nontender. Bowel sounds positive. No organomegaly. No tenderness. No rigidity or rebound. Extremities: No edema, clubbing, cyanosis. Intact pulses. Skin: No rashes. Neurologic: Alert, awake, oriented x3. No acute focal deficits appreciated. Investigations: He had a cardiac catheterization done back on September 2013. He had a mid LAD 40% to 5 0% stenosis. RCA and left circ were both normal. Troponins are negative here and creatinine is norm al. White blood count 6.5, hemoglobin is 14. Assessment And Plan: Chest pain, pressure like in the setting of COVID-19 infection. Recommend to s tart a baby aspirin 81 mg daily and nitroglycerin sublingually as needed for pain relief and obtain e chocardiogram. Also recommend a stress test once the isolation precautions are less restricted on th e patient. We will monitor closely and he will likely need a further cardiac workup as he had at [facility] moderate disease in the LAD about 60 years ago and a coronary angiogram that needs further evaluat ion with a nuclear stress test and echocardiogram and further recommendations according to the result s of above. SR/MODL Voice ID: [id number] Report ID: [id number]
[2020-07-15] MEDS: ATORVASTATIN 40 MG TAB PO SCH (20:04)
[2020-07-15] MEDS: MELATONIN 5 MG TABLET PO PRN (20:04)
[2020-07-16] MEDS: MORPHINE 2 MG/ML SYR IV PRN ×4 (03:50→22:19)
[2020-07-16] MEDS: PANTOPRAZOLE 40MG TABLET PO SCH (06:31)
[2020-07-16 06:37] LABS: Absolute Lymphocytes (CBC) 1.6 K/uL (0.7-4.9); Basophils % 0.1 % (0-1.3); Hematocrit 39.2 % (39.6-49.0); Lymphocytes % 16.6 % (15.3-44.8); MPV 8.6 fL (7.6-11.3); RBC Red Blood Cell Count 4.48 M/uL (4.33-5.43)
[2020-07-16 06:44] LABS: BUN Blood Urea Nitrogen 23 mg/dL (7-18); Bicarbonate 29 mmol/L (21-32); Glucose Level 130 mg/dL (74-106); Magnesium 2.5 mg/dL (1.8-2.4); Potassium 4.5 mmol/L (3.5-5.1); Sodium Level 139 mmol/L (136-145)
[2020-07-16 06:51] LABS: C-Reactive Protein < 2.90 mg/L (<3.00)
[2020-07-16] MEDS: VITAMIN D 1000 UNIT TAB PO SCH (07:56)
[2020-07-16] MEDS: ZINC SULFATE 220 MG CAP PO SCH (07:57)
[2020-07-16] MEDS: ASPIRIN EC 81 MG TAB PO SCH (07:57)
[2020-07-16] MEDS: ENOXAPARIN 40 MG/0.4 ML SQ SCH (07:57)
[2020-07-16] MEDS: predniSONE 20 MG TAB PO SCH ×2 (07:57→16:35)
[2020-07-16] MEDS: ASCORBIC ACID 500 MG TABLET PO SCH ×3 (07:57→20:18)
[2020-07-16 08:07] LABS: Urine Appearance CLEAR; Urine Bilirubin NEGATIVE (NEG); Urine Blood NEGATIVE (NEG); Urine Color YELLOW; Urine Glucose NEGATIVE (NEG); Urine Protein NEGATIVE (NEG); Urine Urobilinogen 0.2 mg/dL (0.2-1.0); Urine pH 5.5 (5.0-7.0)
[2020-07-16 08:48] LABS: Urine Microscopic Reflex NO UMIC
--- NOTE | 2020-07-16 15:39 | P.PN ---
Subjective Date of Service: 07/16/20 Primary Care Provider: None Chief Complaint: Chest pain Subjective: No new changes (feeling ok, continues with intermittent chest pain /pressure. had some bradycardia to 30-40s yesterday briefly, metoprolol dc'd. no new complaints, breathing comfortably on RA) Review of Systems 10-point ROS is otherwise unremarkable Physical Examination - Vital Signs Temperature: 98.2 F Blood Pressure: 125/58 Pulse: 55 Respirations: 16 Pulse Ox (%): 97 - Physical Exam General: Alert, In no apparent distress HEENT: Sclerae nonicteric Respiratory: Clear to auscultation bilaterally Cardiovascular: No edema, Regular rate/rhythm Gastrointestinal: Soft and benign, Non-distended, No tenderness Musculoskeletal: No tenderness Integumentary: No rashes Neurological: Normal speech, Normal affect Assessment & Plan Physician Review Additional Text: Chest pain rule out ACS COVID-19+ Acute on Chronic COPD exacerbation Hyperlipidemia Plan Chest pain rule out ACS: Troponins negative, pt continues with pressure of L chest Cardiology consulted, reviewed prior cath in 2014 - 30% narrowing of the LM, 40- 50% LAD. pt may have worsening of these findings from ~6yrs ago Recommended to obtain nuclear stress test and echocardiogram while inpatient - ordered for tomorrow continue ASA, BB, statin, lovenox for DVT prophylaxis COVID-19+ COPD exacerbation with exposure to COVID: Continue with PRN albuterol inhaler, oral steroids. trend CRP and ferritin, seems to be early in patient's COVID exposure/timeline, improving breathing comfortably on RA, no wheeze on exam today continue to monitor closely Hyperlipidemia: Continue atorvastatin 40. Dispo: nuclear stress test tomorrow, anticipate dc home pending those results Time Spent Managing Pts Care (In Minutes): 35
[2020-07-16] MEDS: MELATONIN 5 MG TABLET PO PRN (20:18)
[2020-07-16] MEDS: ATORVASTATIN 40 MG TAB PO SCH (20:18)
[2020-07-17] MEDS: MORPHINE 2 MG/ML SYR IV PRN ×2 (03:34→10:02)
[2020-07-17] MEDS: PANTOPRAZOLE 40MG TABLET PO SCH (06:42)
[2020-07-17 07:11] LABS: BUN Blood Urea Nitrogen 24 mg/dL (7-18); Bicarbonate 30 mmol/L (21-32); Glucose Level 108 mg/dL (74-106); Magnesium 2.4 mg/dL (1.8-2.4); Potassium 4.1 mmol/L (3.5-5.1); Sodium Level 139 mmol/L (136-145)
[2020-07-17] MEDS ORDERED: REGADENOSON 0.4 MG/5 ML SYR IV ONE (08:33)
[2020-07-17] MEDS: VITAMIN D 1000 UNIT TAB PO SCH (09:00)
[2020-07-17] MEDS: ZINC SULFATE 220 MG CAP PO SCH (09:00)
[2020-07-17] MEDS: ASCORBIC ACID 500 MG TABLET PO SCH ×2 (09:00→14:28)
[2020-07-17] MEDS: ASPIRIN EC 81 MG TAB PO SCH (09:00)
[2020-07-17] MEDS: ENOXAPARIN 40 MG/0.4 ML SQ SCH (09:00)
[2020-07-17] MEDS: predniSONE 20 MG TAB PO SCH (10:02)
--- NOTE | 2020-07-17 12:00 | RAD REPORT ---
EXAM DESCRIPTION: NM - Rest Stress Cardiac Imaging - 07/17/2020 11:46 am CLINICAL HISTORY: CP Chest pain. COMPARISON: No comparisons TECHNIQUE: The patient was administered approximately 10mCi of Tc 99m Sestamibi prior to resting SPE CT imaging of the heart. The patient was then administered approximately 30 mCi of Tc 99m Sestamibi f ollowing exercise or pharmacologic stress. Multiplanar SPECT images were reviewed. FINDINGS: No stress induced ischemic defect is seen to suggest stress induced ischemia. No fixed def ect is seen to suggest hibernating myocardium or scarred myocardium. The end diastolic volume is 146 ml, the end systolic volume is 80 ml, and the ejection fraction is 45 %. IMPRESSION: No stress induced ischemia.
[2020-07-17 13:39] VITALS: O2SAT 97
--- NOTE | 2020-07-17 16:50 | P.DS ---
Admission Date: 07/15/20 Discharge Date: 07/17/20 Primary Care Provider: None Disposition: ROUTINE DISCHARGE Discharge Condition: GOOD Reason for Admission: Chest pain Consultations: Cardiology - Dr. Hardin Procedures: CXR (07/14): Emphysematous changes are present throughout the lungs with linear scarring in the right apex. No focal infiltrate detected CTA Chest (07/14): no large central PE. Cannot exclude small peripheral emboli due to suboptimal contrast opacification. Moderate emphysema. Gallstones. Nuclear Stress Test (07/17): No stress induced ischemia TTE (07/17): normal EF: 55-60%, normal wall motion, normal diastolic function COVID PCR (07/15): Positive Problem List: Chest pain rule out ACS COVID-19+ Acute on Chronic COPD exacerbation Hyperlipidemia Brief History of Present Illness: 60yo M, PMH: COPD presented to ED for chest pain, SOB, fatigue over the last 2-3 days. is COVID+. Chest pain described as pressure-like on left side, radiation to left arm. Not exacerbated by eating/positioning/inspiration. He reports prior cardiac cath in 2013 and was given "clean bill" but recommended Cardiology follow up, which he never did. Initial troponin negative, CXR unremarkable, and EKG without acute ischemic changes. He was treated for COPD with albuterol inhaler in ED with some improvement of his SOB and chest discomfort. Hospital Course: Troponin was trended and negative x 3. Cardiology was consulted. Review of prior cardiac cath reviewed patient had h/o 50% stenosis. He underwent nuclear stress testing which revealed no ischemic changes. ACS was ruled out. He had some improvement with his chest discomfort during his hospitalization and was shantel athing better with treatment with albuterol and prednisone. He was discharged home with prednisone taper. He never required oxygen and was otherwise asymptomatic from his COVID-19 infection. He was advised to f/u with Cardiology for his CAD, pulmonology in 1-2 weeks for COVID-19, and strongly advised to establish with a PCP. Vital Signs/Physical Exam: Temp Pulse Resp BP Pulse Ox 97.8 F 60 20 141/75 H 97 07/17/20 13:06 07/17/20 13:06 07/17/20 13:06 07/17/20 13:06 07/17/20 13:06 General: Alert, In no apparent distress, Oriented x3 HEENT: Sclerae nonicteric Respiratory: Clear to auscultation bilaterally Cardiovascular: No edema, Regular rate/rhythm Gastrointestinal: Soft and benign, Non-distended, No tenderness Musculoskeletal: No tenderness Integumentary: No rashes Neurological: Normal speech, Normal affect Laboratory Data at Discharge: WBC 9.7 K/uL (4.3-10.9) D 07/16/20 06:03 Hgb 13.1 g/dL (13.6-17.9) L 07/16/20 06:03 Hct 39.2 % (39.6-49.0) L 07/16/20 06:03 Plt Count 290 K/uL (152-406) 07/16/20 06:03 PT 11.2 SECONDS (9.5-12.5) 07/14/20 20:52 INR 0.95 07/14/20 20:52 Sodium 139 mmol/L (136-145) 07/17/20 06:09 Potassium 4.1 mmol/L (3.5-5.1) 07/17/20 06:09 BUN 24 mg/dL (7-18) H 07/17/20 06:09 Creatinine 0.84 mg/dL (0.55-1.3) 07/17/20 06:09 Glucose 108 mg/dL (74-106) H 07/17/20 06:09 Magnesium 2.4 mg/dL (1.8-2.4) 07/17/20 06:09 Total Bilirubin 0.4 mg/dL (0.2-1.0) 07/14/20 20:52 AST 9 U/L (15-37) L 07/14/20 20:52 ALT 18 U/L (12-78) 07/14/20 20:52 Alkaline Phosphatase 133 U/L (45-117) H 07/14/20 20:52 Troponin I < 0.02 ng/mL (0.0-0.045) 07/16/20 22:25 Home Medications: RX: Aspirin Chewable [Aspirin Chewable*] 81 mg PO DAILY #0 tab.chew 10/19/13 RX: Metoprolol Tartrate [Lopressor*] 25 mg PO BID 6AM 6PM #60 tab 07/07/20 RX: Albuterol Inhaler [Ventolin Inhaler*] 2 puff IH Q6H PRN hfa.aer.ad 07/17/20 RX: Atorvastatin Calcium [Lipitor] 40 mg PO BEDTIME 30 Days #30 tab 07/17/20 RX: predniSONE [Prednisone*] 20 mg PO SEECOM #15 tab 07/17/20 New Medications: RX: Atorvastatin Calcium [Lipitor] 40 mg PO BEDTIME 30 Days #30 tab RX: predniSONE [Prednisone*] 20 mg PO SEECOM #15 tab Patient Discharge Instructions: Your chest pain was not due to a heart attack or acute heart damage. It is possibly related to COVID-19. On discharge, continue home medications, a prescription for atorvastatin 40mg daily for your heart, and prednisone 20mg twice a day for 5 days, then once a day for 5 days to help with your COVID-19 infection. Follow up with your PCP within 1 week. You can also follow up with Dr. Simon (Pulmonology) for your COVID symptoms. Diet: AHA Activity: Ad emanuel Followup: Lobito Simon MD [ACTIVE - CAN ADMIT] - NONE,NONE [Primary Care Provider] - Time spent managing pt's care (in minutes): 45
[2020-07-17 17:48] VITALS: BP 126/66; TEMP 98.1
--- NOTE | 2020-07-18 07:44 | TREADPHA ---
DX: CONCERN FOR CORNARY ARTERY DISEASE Date of Study: 07/17/2020 Ht: 6' 1 " Wt: 200 lb 0 oz Consulting Physician: BENI MEDICATIONS: ASPIRIN, LIPITOR, LOVENOX, DELTASONE HISTORY: PHYSICIAL EXAMINATION: RESTING B.P.: RESTING H.R.: RESTING EKG: WITHIN NORMAL LIMITS PROTOCOL: PHARMACOLOGIC EXERCISE TIME: 3:30 B.P. AT PEAK STRESS: IMPRESSION: NO EKG CHANGES OF ISCHEMIA WITH STRESS.
--- NOTE | 2020-07-18 08:14 | ECHO ---
HEIGHT: 6 ft 1 in WEIGHT: 200 lb 0 oz DATE OF STUDY: 07/17/[address]: Claude Pantoja MD 2-DIMENSIONAL: YES M.MODE: YES DOPPLER: YES COLOR FLOW: YES TDS: PORTABLE: DEFINITY: BUBBLE STUDY: DIAGNOSIS: CONCERN FOR MYOCARDIAL INFARCTION, EVALUATE FUNCTION CARDIAC HISTORY: CATHERIZATION: NO SURGERY: NO PROSTHETIC VALVE: NO PACEMAKER: NO MEASUREMENTS (cm) DIASTOLIC (NORMALS) SYSTOLIC (NORMALS) IVSd 1.0 (0.6-1.2) LA Diam 2.9 (1.9-4.0) LVEF 60% LVIDd 5.1 (3.5-5.7) LVIDs 3.5 (2.0-3.5) %FS 32% LVPWd 1.0 (0.6-1.2) Ao Diam 2.8 (2.0-3.7) 2 DIMENSIONAL ASSESSMENT: RIGHT ATRIUM: NORMAL LEFT ATRIUM: NORMAL RIGHT VENTRICLE: NORMAL LEFT VENTRICLE: NORMAL TRICUSPID VALVE: NORMAL MITRAL VALVE: NORMAL PULMONIC VALVE: NORMAL AORTIC VALVE: NORMAL PERICARDIAL EFFUSION: NONE AORTIC ROOT: NORMAL LEFT VENTRICULAR WALL MOTION: NORMAL DOPPLER/COLOR FLOW: NORMAL COMMENTS: NORMAL LEFT VENTRICULAR EJECTION FRACTION 55-60%. NORMAL WALL MOTION. NORMAL DIASTOLIC FUNCTION. TECHNOLOGIST: WIL WATERS
== END 2020-07-17 18:02 | disposition home or self-care (01) | DRG 178 ==
LOC: ER 19:52 → ERHOLD 07-15 01:10 → 4TH 07-15 02:50 → OBSVTOIN 07-15 10:11
PROVIDERS: ADMIT Hospitalist; ATTEND Hospitalist
PROC: 8E0ZXY6 Isolation (ICD-10-PCS; principal; 2020-07-15)
DX: U07.1 COVID-19 (principal); J44.1 Chronic obstructive pulmonary disease with (acute) exacerbation; E78.5 Hyperlipidemia, unspecified; R00.1 Bradycardia, unspecified; I25.2 Old myocardial infarction; Z79.82 Long term (current) use of aspirin; Z79.899 Other long term (current) drug therapy; Z89.431 Acquired absence of right foot; Z90.49 Acquired absence of other specified parts of digestive tract; Z79.52 Long term (current) use of systemic steroids
CPT/HCPCS: 36415; 71045; 71275; 78452; 80048; 80076; 81003; 82728; 83735; 83880; 84484; 85025; 85610; 86140; 87804; 93005; 93017; 93306; 96374; 96375; 99285; A9500; C9113; J1650; J2270; J2405; J2785; J2930; J7512; Q9967; U0003

== ENCOUNTER 2022-12-02 09:44 | Emergency (ER) | payer OTHER ==
--- OUTSIDE RECORDS SUMMARY | 2022-12-02 09:48 | XMS REPORT | Continuity of Care Document ---
:1960 Author Organization [facility] t Address [address] [place] [place] [address] Care Team Providers Name Role Phone PCP, PATIENT DOES NOT HAVE A Primary Care Physician Unavaila ESTEBAN Perry Attending Clinician Unavailable Esteban Proctor Attending Clinician JUNIOR WARREN Admitting Clinician Unavailable Problems This patient has no known problems. Allergies, Adverse Reactions, Alerts Allergy Allergy Status Severity Reaction(s) Onset Inactive Treating Comm ents Source Name Type Date Date Clinician NO KNOWN Drug Active [facility] ALLERGIE Class [facility] Medications This patient has no known medications. Procedures This patient has no known procedures. Encounters Start End Encounter Admission Attending Care Care Encounter Source Date/Time Date/Time Type Type Clinicians Facility Department ID 2020-07-06 2020-07-06 Emergency X MILI TOBAR ERT [id number] 00:14:00 01:50:00 ESTEBAN powers [facility] 2020-07-06 2020-07-06 Emergency Nerissa LAGERMAIN [id number] 00:14:00 01:50:00 Esteban Fonseca [id number] [place] [id number] [employer] [id number] Results This patient has no known results.
[2022-12-02 10:30] LABS: Absolute Lymphocytes (CBC) 2.7 K/uL (0.7-4.9); Hematocrit 42.2 % (39.6-49.0); Lymphocytes % 32.1 % (15.3-44.8); MCV 87.8 fL (80-100); MPV 7.8 fL (7.6-11.3); RBC Red Blood Cell Count 4.81 M/uL (4.33-5.43)
--- NOTE | 2022-12-02 10:54 | RAD REPORT ---
EXAM DESCRIPTION: RAD - Chest Single View - 12/02/2022 10:42 am CLINICAL HISTORY: CHEST PAIN COMPARISON: Chest Single View dated 07/14/2020; Chest Single View dated 07/07/2020; Chest Single Vie w dated 05/26/2020; CHEST SINGLE VIEW dated 10/17/2013 FINDINGS: Lines: None. Lungs: No evidence of edema or pneumonia. Pleural: No significant pleural effusions or pneumothorax. Cardiac: The heart size is within normal limits. Mediastinum: Within normal limits. Bones: No acute fractures. Other: None IMPRESSION: No acute cardiopulmonary disease.
[2022-12-02 10:57] LABS: Albumin 3.9 g/dL (3.4-5.0); Bilirubin Direct 0.3 mg/dL (0-0.2); Bilirubin Indirect, Calculated 0.8 mg/dL (0.2-0.8); Bilirubin Total 1.1 mg/dL (0.2-1.0); Potassium 3.4 mEq/L (3.5-5.1); Protein, Total 7.5 g/dL (6.4-8.2); Troponin High Sensitivity 4.3 pg/mL (<58.9)
--- NOTE | 2022-12-02 11:38 | ER ---
Nurse's Notes [facility] Name: Jose Alfredo Oconnor Age: 62 yrs Sex: Male : 1960 Arrival Date: 12/02/2022 Time: 09:44 Bed 3 Private MD: Diagnosis: Paroxysmal atrial fibrillation;Chest pain, unspecified;Hypokalemia Presentation: 12/02 09:50 Chief complaint: Patient states: [facility] patient states that ap3 for approx one week he has had intermittent chest pain with both arms tingling and hot flashes. Patient reports that since arriving in the ER, his symptoms have improved. Coronavirus screen: At this time, the client does not indicate any symptoms associated with coronavirus-19. Ebola Screen: No symptoms or risks identified at this time. Initial Sepsis Screen: Does the patient meet any 2 criteria? No. Patient's initial sepsis screen is negative. Does the patient have a suspected source of infection? No. Patient's initial sepsis screen is negative. Risk Assessment: Do you want to hurt yourself or someone else? Patient reports no desire to harm self or others. Onset of symptoms was November 25, 2022. 09:50 Method Of Arrival: Wheelchair ap3 09:50 Acuity: DAY 2 ap3 Triage Assessment: 10:04 General: Appears in no apparent distress. Behavior is cooperative, appropriate for age. ap3 Pain: Complains of pain in chest Pain currently is 4 out of 10 on a pain scale. Pain began approx one week ago Is intermittent. Neuro: Level of Consciousness is awake, alert, obeys commands, Oriented to person, place, time, situation, Speech is normal. Cardiovascular: Reports chest pain. Respiratory: Airway is patent Respiratory effort is even, unlabored, Respiratory pattern is regular, symmetrical. Historical: - Allergies: 10:03 No Known Allergies; ap3 - PMHx: 10:03 COPD; Myocardial infarction; Atrial fibrillation; Congestive heart failure; Diabetes ap3 mellitus; - Immunization history:: Client reports having NOT received the Covid vaccine. - Social history:: Smoking status: Patient denies any tobacco usage or history of. - Family history:: not pertinent. - Hospitalizations: : No recent hospitalization is reported. Screenin:05 [facility] ED Fall Risk Assessment (Adult) History of falling in the last 3 months, ap3 including since admission No falls in past 3 months (0 pts). Abuse screen: Denies threats or abuse. Nutritional screening: No deficits noted. Tuberculosis screening: No symptoms or risk factors identified. Vital Signs: 09:50 BP 169 / 93; Pulse 57; Resp 15; Pulse Ox 99% ; Weight 97.52 kg; Height 6 ft. 0 in. ; ap3 Pain 3/10; 12:03 BP 133 / 78; Pulse 77; Pulse Ox 99% ; ap3 09:50 Body Mass Index 29.16 (97.52 kg, 182.88 cm) ap3 09:50 Pain Scale: Adult ap3 ED Course: 09:45 Patient arrived in ED. iw 09:47 Liang Pantoja MD is Attending Physician. rn 09:50 EKG done, by ED staff, reviewed by Liang Pantoja MD. ap3 10:01 Cait Lopez RN is Primary Nurse. ap3 10:03 Triage completed. ap3 10:05 Arm band placed on right wrist. ap3 10:05 Patient has correct armband on for positive identification. Bed in low position. Call ap3 light in reach. Side rails up X 1. Adult w/ patient. groundwater monitoring technician on. Pulse ox on. NIBP on. 10:23 Initial lab(s) drawn, by me, sent to lab. Inserted saline lock: 22 gauge in right ap3 wrist, using aseptic technique. 10:43 XRAY Chest (1 view) In Process Unspecified. EDMS 12:02 No provider procedures requiring assistance completed. IV discontinued, intact, ap3 bleeding controlled, No redness/swelling at site. Pressure dressing applied. Administered Medications: 12:02 Drug: Potassium Chloride PO 40 mEq Route: PO; ap3 12:04 Follow up: Response: No adverse reaction ap3 Medication: 10:05 VIS not applicable for this client. ap3 Outcome: 11:38 Discharge ordered by . rn 12:02 Discharged to home ambulatory, with family. ap3 12:02 Condition: good 12:02 Discharge instructions given to patient, Instructed on discharge instructions, follow up and referral plans. Demonstrated understanding of instructions, follow-up care. 12:04 Patient left the ED. ap3 Signatures: Dispatcher [employer] EDMS Nataly Truong RN RN Pantoja, Liang, MD MD rn Prokisch, Cait, RN RN ap3
--- NOTE | 2022-12-02 11:38 | EDPHYS ---
Physician Documentation [facility] Name: Jose Alfredo Oconnor Age: 62 yrs Sex: Male : 1960 Arrival Date: 12/02/2022 Time: 09:44 Bed 3 Private MD: ED Physician Liang Pantoja HPI: 12/02 10:54 This 62 yrs old Male presents to ER via Wheelchair with complaints of palpitations, rn chest pain. 10:54 The patient or guardian reports chest pain that is located primarily in the substernal rn area. Onset: 3 day(s) ago. The pain does not radiate. Associated signs and symptoms: Pertinent positives: palpitations, Pertinent negatives: abdominal pain, syncope, vomiting. The chest pain is described as aching. Duration: The patient or guardian reports multiple episodes, that are intermittent. Modifying factors: The symptoms are alleviated by nothing. the symptoms are aggravated by nothing. Severity of pain: At its worst the pain was moderate in the emergency department the pain has improved. The patient has experienced similar episodes in the past. The patient has not recently seen a physician. Pt reports atrial fibrillation/palpitations that is intermittent and happening over the last 2-3 days. No changes in medication. No fever. When HR is elevated, reports chest pain and mild sob. Feels better currently and did not take extra medication. No abd pain. . Historical: - Allergies: 10:03 No Known Allergies; ap3 - PMHx: 10:03 COPD; Myocardial infarction; Atrial fibrillation; Congestive heart failure; Diabetes ap3 mellitus; - Immunization history:: Client reports having NOT received the Covid vaccine. - Social history:: Smoking status: Patient denies any tobacco usage or history of. - Family history:: not pertinent. - Hospitalizations: : No recent hospitalization is reported. ROS: 10:54 Constitutional: Negative for fever, chills, and weight loss, Eyes: Negative for injury, rn pain, redness, and discharge, Neck: Negative for injury, pain, and swelling, Cardiovascular: + chest pain and sob Respiratory: Negative for cough, wheezing, and pleuritic chest pain, Abdomen/GI: Negative for abdominal pain, nausea, vomiting, diarrhea, and constipation, Back: Negative for injury and pain, MS/Extremity: Negative for injury and deformity, Skin: Negative for injury, rash, and discoloration, Neuro: Negative for headache, weakness, numbness, tingling, and seizure. Exam: 10:03 ECG was reviewed by the Attending Physician. rn 10:54 Constitutional: This is a well developed, well nourished patient who is awake, alert, rn seems anxious Head/Face: Normocephalic, atraumatic. Cardiovascular: Bradycardic, regular Respiratory: No increased work of breathing, no retractions or nasal flaring. Abdomen/GI: Soft, non-tender Skin: Warm, dry MS/ Extremity: Pulses equal, no cyanosis. Neuro: Awake and alert, GCS 15 Vital Signs: 09:50 BP 169 / 93; Pulse 57; Resp 15; Pulse Ox 99% ; Weight 97.52 kg; Height 6 ft. 0 in. ; ap3 Pain 3/10; 12:03 BP 133 / 78; Pulse 77; Pulse Ox 99% ; ap3 09:50 Body Mass Index 29.16 (97.52 kg, 182.88 cm) ap3 09:50 Pain Scale: Adult ap3 MDM: 09:47 Patient medically screened. rn 11:35 Differential diagnosis: acute myocardial infarction, acute pericarditis, anxiety, rn coronary artery disease pleurisy, stable angina, afib with rvr. Data reviewed: vital signs, nurses notes, lab test result(s), EKG, radiologic studies, plain films, and as a result, I will discharge patient. Counseling: I had a detailed discussion with the patient and/or guardian regarding: the historical points, exam findings, and any diagnostic results supporting the discharge/admit diagnosis, lab results, radiology results, the need for outpatient follow up, to return to the emergency department if symptoms worsen or persist or if there are any questions or concerns that arise at home. Response to treatment: the patient's symptoms have markedly improved after treatment, the patient's symptoms have resolved after treatment, the patient's condition has returned to base line, the patient is now symptom free, and as a result, I will discharge patient. Special discussion: I discussed with the patient/guardian in detail that at this point there is no indication for admission to the hospital. It is understood, however, that if the symptoms persist or worsen the patient needs to return immediately for re-evaluation. Based on the history and exam findings, there is no indication for further emergent testing or inpatient evaluation. I discussed with the patient/guardian the need to see the supervisor [facility] for further evaluation of the symptoms. I discussed with the patient/guardian the need to see the primary care provider for further evaluation of the symptoms. ED course: Trop neg, is out of afib, sinus mary jo, asymptomatic, will dc home with pcp f/u and given return precautions.. 12/02 09:57 Order name: Basic Metabolic Panel; Complete Time: 11:12/02 09:57 Order name: CBC with Diff; Complete Time: 11:12/02 09:57 Order name: LFT's; Complete Time: 11:12/02 09:57 Order name: NT PRO-BNP; Complete Time: 11:12/02 09:57 Order name: PT-INR rn 12/02 09:57 Order name: Troponin HS; Complete Time: 11:12/02 09:57 Order name: XRAY Chest (1 view); Complete Time: 11:12/02 09:57 Order name: EKG; Complete Time: 09:57 12/02 09:57 Order name: Cardiac monitoring; Complete Time: 10:12/02 09:57 Order name: EKG - Nurse/Tech; Complete Time: 10:12/02 09:57 Order name: IV Saline Lock; Complete Time: 10:12/02 09:57 Order name: Labs collected and sent; Complete Time: 10:12/02 09:57 Order name: O2 Per Protocol; Complete Time: 10:12/02 09:57 Order name: O2 Sat Monitoring; Complete Time: 10: rn EC:03 Rate is 58 beats/min. Rhythm is regular. QRS [place] is Normal. NH interval is normal. QRS rn interval is normal. QT interval is normal. No Q waves. T waves are Normal. No ST changes noted. Clinical impression: Sinus bradycardia. Interpreted by me. Reviewed by me. Administered Medications: 12:02 Drug: Potassium Chloride PO 40 mEq Route: PO; ap3 12:04 Follow up: Response: No adverse reaction ap3 Disposition Summary: 12/02/22 11:38 Discharge Ordered Location: Home rn Problem: an acute exacerbation rn Symptoms: are resolved rn Condition: Stable rn Diagnosis - Paroxysmal atrial fibrillation rn - Chest pain, unspecified rn - Hypokalemia rn Followup: rn - With: Private Physician - When: As needed - Reason: Recheck today's complaints, Re-evaluation by your physician Discharge Instructions: - Discharge Summary Sheet rn - Atrial Fibrillation rn - Nonspecific Chest Pain, Adult rn - Hypertension, Adult rn - Hypokalemia rn Forms: - Medication Reconciliation Form rn - Thank You Letter rn - Antibiotic trial attorney - Prescription Opioid Use rn Signatures: Dispatcher [employer] EDLiang Navarrete MD MD rn Prokisch, Amanda, RN RN ap3
[2022-12-02] MEDS ORDERED: POTASSIUM CL SA 10 MEQ TAB PO ONE (12:00)
[2022-12-02 12:01] LABS: Protime INR 0.98
[2022-12-02 12:11] VITALS: O2SAT 99
[2022-12-02 12:12] VITALS: BP 133/78
--- NOTE | 2022-12-03 07:49 | EKG ---
Test Date: 2022-12-02 Test Time: 09:48:55 [employer]: ALP MEASUREMENT RESULTS: Intervals: Rate: 58 MI: 172 QRSD: 90 QT: 396 QTc: 388 Dequincy: P: 48 MI: 172 QRS: -4 T: 13 INTERPRETIVE STATEMENTS: Sinus bradycardia with sinus arrhythmia Otherwise normal ECG Compared to ECG 07/15/2020 14:01:05 Left ventricular hypertrophy no longer present T-wave abnormality no longer present Possible ischemia no longer present Electronically Signed On 12-03-22 07:46:25 CDT by Bigg Pena
== END 2022-12-02 12:04 | disposition home or self-care (01) ==
LOC: ER 09:44
DX: I48.0 Paroxysmal atrial fibrillation (principal); E87.6 Hypokalemia; R07.9 Chest pain, unspecified; E11.9 Type 2 diabetes mellitus without complications; I25.2 Old myocardial infarction; J44.9 Chronic obstructive pulmonary disease, unspecified
CPT/HCPCS: 36415; 71045; 80048; 80076; 83880; 84484; 85025; 85610; 93005; 99285